=== PATIENT | female | born 1970 | race Caucasian/White ===

== ENCOUNTER 2017-06-05 09:51 | Emergency (ER) | payer OTHER, SELFPAY ==
[2017-06-05 10:06] VITALS: O2SAT 97
--- NOTE | 2017-06-05 10:26 | ERPHSYRPT ---
- History of Present Illness Time Seen by Provider: 06/05/17 10:10 Source: patient Exam Limitations: clinical condition Patient Subjective Stated Complaint: pt here for middle back pain for 2 days now , no injury. cough last 2 days, no fever Triage Nursing Assessment: pt alert, resp easy, skin w/d. walked in, no injury noted, tender to touch Physician History: PATIENT WITH HISTORY OF CHRONIC NECK AND LOW BACK PAIN FOR YEARS. HAS ONSET OF MID BACK PAIN X 2 DAYS ASSOCIATED WITH A PRODUCTIVE COUGH. DENIES FEVER, CHILLS OR DYSPNEA. Timing/Duration: day(s) Method of Injury: unknown Quality: throbbing Back Pain Location: T-spine Severity of Pain-Max: moderate Severity of Pain-Current: moderate Associated Symptoms: denies symptoms Previous symptoms: no prior history (HISTORY OR CHROINC NECK AND LOW BACK PAIN) Allergies/Adverse Reactions: hydrocodone bitartrate [From Vicodin] Allergy (Verified 06/05/17 10:06) Home Medications: No Home Meds 1 ea UD 03/03/15 [History] Hx Tetanus, Diphtheria Vaccination/Date Given: No Hx Influenza Vaccination/Date Given: No Hx Pneumococcal Vaccination/Date Given: No Immunizations Up to Date: Yes - Review of Systems Constitutional: No Symptoms, No Fever, No Chills Eyes: No Symptoms Ears, Nose, & Throat: No Symptoms Respiratory: Cough, No Dyspnea Cardiac: No Symptoms, No Chest Pain, No Edema, No Syncope Abdominal/Gastrointestinal: No Symptoms, No Abdominal Pain, No Nausea, No Vomiting, No Diarrhea Genitourinary Symptoms: No Symptoms, No Dysuria Musculoskeletal: Back Pain, No Neck Pain Skin: No Rash Neurological: No Dizziness, No Focal Weakness, No Sensory Changes Psychological: No Symptoms Endocrine: No Symptoms All Other Systems: Reviewed and Negative - Past Medical History Pertinent Past Medical History: Yes Cardiac History: Other Other Medical History: mitral valve proplapse - Past Surgical History Past Surgical History: Yes Female Surgical History: Hysterectomy, Tubal Ligation Other Surgical History: tonsils - Social History Smoking Status: Never smoker Exposure to second hand smoke: Yes Drug Use: none Patient Lives Alone: No - Female History Hx Last Menstrual Period: hyster - Nursing Vital Signs Nursing Vital Signs: Initial Vital Signs Temperature 97.9 F Temperature Source Oral Pulse Rate 83 Respiratory Rate 16 Blood Pressure [Right Arm] 131/83 Pain Intensity [Back] 5 Pain Intensity 8 - Physical Exam General Appearance: no apparent distress, alert Eye Exam: PERRL/EOMI, eyes nml inspection Ears, Nose, Throat Exam: normal ENT inspection Neck Exam: normal inspection, non-tender, supple, full range of motion, No meningismus, No midline tenderness Respiratory Exam: normal breath sounds, lungs clear, other (NO WHEEZES), No respiratory distress Cardiovascular Exam: regular rate/rhythm, normal heart sounds Gastrointestinal Exam: soft, normal bowel sounds, other (OBESE), No tenderness, No mass Back Exam: normal inspection, vertebral tenderness (THERE IS MINIMAL THORACIC PARASPINAL TENDERNESS T4 TO T8, NO CVA TENDERNESS), decreased range of motion Extremity Exam: normal inspection, normal range of motion, No calf tenderness, No pedal edema Peripheral Pulses: carotid (R): 2+, carotid (L): 2+, femoral (R): 2+, femoral (L ): 2+, dorsalis-pedis (R): 2+, dorsalis-pedis (L): 2+ Neurologic Exam: alert, oriented x 3, cooperative, 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, normal mood/affect, nml station & gait, sensation nml, No motor deficits Skin Exam: normal color, warm, dry, No rash SpO2 Interpretation: normal SpO2: 97 Oxygen Delivery: Room Air - Radiology Exams Chest X-ray Interpretation: Discussed w/ radiologist, Negative, No Infiltrates T-Spine X-ray Interpretation: No Fracture, No Subluxation Ordered Tests: Active Orders 24 hr Category Date Time Status Clean Catch Urine Specimen STAT Care 06/05/17 10:19 Active CHEST 2 VIEWS (PA AND LAT) Stat Exams 06/05/17 10:18 Completed THORACIC SPINE (AP,LAT,SWIMM) Stat Exams 06/05/17 10:19 Completed UA Stat Lab 06/05/17 10:19 Uncollected - Progress Progress: pain not gone completely Progress Note: 06/05/17 11:10 APPEARS IN NO DISTRESS, SITTING IN ROOM LAUGHING WHILE TEXTING Counseled pt/family regarding: lab results, diagnosis, need for follow-up - Departure Time of Disposition: 11:12 Departure Disposition: Home Clinical Impression: MID BACK PAIN, ACUTE BRONCHITIS Condition: Stable Critical Care Time: No Referrals: LEONELA BUSTOS [Primary Care Provider] - Additional Instructions: CONTINUE NAPROSYN FOR PAIN. NORFLEX 100MG TWICE DAILY FOR MUSCLE SPASM. ANTIBIOTIC ZITHROMAX 250MG, 2 TABLETS DAY 1 THE 1 TABLET DAILY FOR 4 DAYS. CONSULT YOUR FAMILY PHYSICIAN FOR EVALUATION AND TREATMENT. Prescriptions: Azithromycin 250 mg [Zithromax 250 MG TABLET] 250 mg PO DAILY #0 tablet Orphenadrine Citrate 100 mg [Norflex 100 MG Tablet] 100 mg PO BID #10 tab
--- NOTE | 2017-06-05 10:49 | XRAY ---
Indication: Back pain. Comparison: None Frontal/lateral thoracic spine demonstrates 11 rib-bearing thoracic segments with hypoplastic T12 ribs in normal alignment with disc spaces maintained. No bony, articular, or soft tissue abnormalities.
--- NOTE | 2017-06-05 10:54 | XRAY ---
Indication: Cough and vomiting. Back pain. Comparison: March 03, 2015. PA/lateral chest again demonstrates normal heart, lungs, and bony thorax.
[2017-06-05 11:20] VITALS: BP 142/90; PULSE 70
== END 2017-06-05 11:28 | disposition home or self-care (01) ==
LOC: ED 09:51
DX: M54.9 Dorsalgia, unspecified (principal); J20.9 Acute bronchitis, unspecified; R05 Cough; M54.5 Low back pain; M54.6 Pain in thoracic spine
CPT/HCPCS: 71020; 72072; 99284

== ENCOUNTER 2019-05-31 11:23 | Emergency (ER) | payer MEDICAID, OTHER ==
[2019-05-31 11:42] VITALS: BP 143/80; PULSE 74; O2SAT 98
--- NOTE | 2019-05-31 11:55 | ERPHSYRPT ---
- History of Present Illness Time Seen by Provider: 05/31/19 11:45 Source: patient Exam Limitations: no limitations Patient Subjective Stated Complaint: presented to ER with pain in Ribs and some in back, having for 2 days Triage Nursing Assessment: patient presented to ER lin to ambulate by self, gait is steady, pupilsp errla3, lung sounds clear bialteral, bowel sounds present x4, skin warm dry and intact. Physician History: 49-year-old white female arrives with complaint of pain in her upper back and posterior ribs symptoms since yesterday Denies cough or shortness of breath states pain is worse with breathing. No nausea no vomiting. Past medical history includes chronic neck and back pain, mitral valve prolapse. (Patient states seen for prolapse and is not sure she really had this) Past surgical history includes hysterectomy, tubal ligation, tonsillectomy, gallbladder Timing/Duration: yesterday Severity: moderate Modifying Factors: Improves With: other (worse with breathing) Associated Symptoms: No nausea, No vomiting, No abdominal pain, No shortness of breath, No heartburn, No diaphoresis, No cough, No chills, No chest pain, No fever, No headaches, No loss of appetite, No malaise, No rash, No syncope, No seizure, No weakness Allergies/Adverse Reactions: hydrocodone bitartrate [From Vicodin] Allergy (Verified 06/05/17 10:06) Home Medications: No Home Meds [No Home Meds] 1 [facility] UD 03/03/15 [History] Hx Tetanus, Diphtheria Vaccination/Date Given: Yes Hx Influenza Vaccination/Date Given: No Hx Pneumococcal Vaccination/Date Given: No Immunizations Up to Date: Yes - Review of Systems Constitutional: No Fever, No Chills Eyes: No Symptoms Ears, Nose, & Throat: No Symptoms Cardiac: Other (pain with breathing in upper back) Abdominal/Gastrointestinal: No Abdominal Pain, No Nausea, No Vomiting, No Diarrhea Genitourinary Symptoms: No Dysuria Musculoskeletal: Back Pain (pain upper back with breathing), No Neck Pain Skin: No Rash Neurological: No Dizziness, No Focal Weakness, No Sensory Changes Psychological: No Symptoms Endocrine: No Symptoms All Other Systems: Reviewed and Negative - Past Medical History Pertinent Past Medical History: Yes Neurological History: No Pertinent History Cardiac History: Other Respiratory History: Bronchitis Endocrine Medical History: No Pertinent History Musculoskeletal History: Arthritis, Fibromyalgia, Fractures Other Medical History: mitral valve proplapse - Past Surgical History Past Surgical History: Yes Female Surgical History: Hysterectomy, Tubal Ligation Other Surgical History: tonsils - Social History Smoking Status: Never smoker Exposure to second hand smoke: Yes Drug Use: none Patient Lives Alone: No - Female History Hx Now: No - Nursing Vital Signs Nursing Vital Signs: Initial Vital Signs Pulse Rate 74 05/31/19 11:24 Respiratory Rate 16 05/31/19 11:24 Blood Pressure 143/80 05/31/19 11:24 O2 Sat by Pulse Oximetry 98 05/31/19 11:24 Pain Scale Pain Intensity 8 - Physical Exam General Appearance: no apparent distress, alert Eye Exam: PERRL/EOMI, eyes nml inspection Ears, Nose, Throat Exam: normal ENT inspection, TMs normal, pharynx normal, moist mucous membranes Neck Exam: normal inspection, non-tender, supple, full range of motion Respiratory Exam: rhonchi (occasional rhonchi) Cardiovascular Exam: regular rate/rhythm, normal heart sounds, normal peripheral pulses Gastrointestinal/Abdomen Exam: soft, normal bowel sounds, No tenderness, No mass Back Exam: other (pain in upper back with breathing) Extremity Exam: normal inspection, normal range of motion, pelvis stable Neurologic Exam: alert, oriented x 3, 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 No acute cardiopulmonary disease seen. No pneumothorax is identified.. The findings are unchanged from June 05, 2017) - CT Exams Chest CT Interpretation: Discussed w/radiologist (CT chest with contrast: Impression 1. No CT evidence of pulmonary embolism, thoracic aortic aneurysm, or thoracic aortic dissection. 2. No other acute cardiopulmonary disease is seen) Ordered Tests: Active Orders 24 hr Category Date Time Status Seasonal Clerk STAT Care 05/31/19 11:51 Active EKG-ER Only STAT Care 05/31/19 11:50 Active Pulse Oximetry (ED) STAT Care 05/31/19 11:50 Active CHEST 1 VIEW (PORTABLE) Stat Exams 05/31/19 11:51 Completed CHEST WITH CONTRAST [CT] Stat Exams 05/31/19 12:25 Completed CBC W DIFF Stat Lab 05/31/19 12:02 Completed CMP Stat Lab 05/31/19 12:02 Completed D-DIMER QUANTITATION Stat Lab 05/31/19 12:02 Completed TROPONIN Q3H Lab 05/31/19 12:02 Completed TROPONIN Q3H Lab 05/31/19 15:00 Ordered TROPONIN Q3H Lab 05/31/19 18:00 Ordered TROPONIN Q3H Lab 05/31/19 21:00 Ordered TROPONIN Q3H Lab 06/01/19 00:00 Ordered UA W/RFX UR CULTURE Stat Lab 05/31/19 13:00 Completed Lab/Rad Data: Laboratory Result Diagrams 05/31/19 12:02 05/31/19 12:02 Laboratory Results 05/31/19 05/31/19 05/31/19 Range/Units 13:00 12:02 12:02 WBC (4.0-10.5) K/mm3 RBC (4.1-5.4) M/mm3 Hgb (12.0-16.0) gm/dl Hct (35-47) % MCV (78-100) fl MCH (26-32) pg MCHC (32-36) g/dl RDW (11.5-14.0) % Plt Count (150-450) K/mm3 MPV (6-9.5) fl Gran % (36.0-66.0) % Eos # (Auto) (0-0.5) Absolute Lymphs (auto) (1.0-4.6) Absolute Monos (auto) (0.0-1.3) Lymphocytes % (24.0-44.0) % Monocytes % (0.0-12.0) % Eosinophils % (0.00-5.0) % Basophils % (0.0-0.4) % Absolute Granulocytes (1.4-6.9) Basophils # (0-0.4) D-Dimer 695 H* (215-500) ng/mL Sodium (137-145) mmol/L Potassium (3.5-5.1) mmol/L Chloride (98-107) mmol/L Carbon Dioxide (22-30) mmol/L Anion Gap (5-15) MEQ/L BUN (7-17) mg/dL Creatinine (0.52-1.04) mg/dL Estimated GFR ML/MIN Glucose (74-106) mg/dL Calcium (8.4-10.2) mg/dL Total Bilirubin (0.2-1.3) mg/dL AST (14-36) U/L ALT (0-35) U/L Alkaline Phosphatase (38-126) U/L Troponin I < 0.012 (0.000-0.034) ng/mL Serum Total Protein (6.3-8.2) g/dL Albumin (3.5-5.0) g/dL Urine Color YELLOW (YELLOW) Urine Appearance SLIGHTLY CLOUDY (CLEAR) Urine pH 6.0 (5-6) Ur Specific [place] 1.009 (1.005-1.025) Urine Protein NEGATIVE (Negative) Urine Ketones NEGATIVE (NEGATIVE) Urine Blood SMALL (0-5) Terence/ul Urine Nitrite NEGATIVE (NEGATIVE) Urine Bilirubin NEGATIVE (NEGATIVE) Urine Urobilinogen NEGATIVE (0-1) mg/dL Ur Leukocyte Esterase NEGATIVE (NEGATIVE) Urine WBC (Auto) 0-2 (0-5) /HPF Urine RBC (Auto) NONE (0-2) /HPF U Epithel Cells (Auto) FEW (FEW) /HPF Urine Bacteria (Auto) NONE (NEGATIVE) /HPF Urine Mucus (Auto) SLIGHT (NEGATIVE) /HPF Urine Culture Reflexed NO (NO) Urine Glucose NEGATIVE (NEGATIVE) mg/dL 05/31/19 05/31/19 Range/Units 12:02 12:02 WBC 8.0 (4.0-10.5) K/mm3 RBC 4.63 (4.1-5.4) M/mm3 Hgb 14.4 (12.0-16.0) gm/dl Hct 42.9 (35-47) % MCV 92.7 (78-100) fl MCH 31.1 (26-32) pg MCHC 33.6 (32-36) g/dl RDW 13.0 (11.5-14.0) % Plt Count 277 (150-450) K/mm3 MPV 10.2 H (6-9.5) fl Gran % 63.0 (36.0-66.0) % Eos # (Auto) 0.17 (0-0.5) Absolute Lymphs (auto) 2.15 (1.0-4.6) Absolute Monos (auto) 0.61 (0.0-1.3) Lymphocytes % 26.9 (24.0-44.0) % Monocytes % 7.6 (0.0-12.0) % Eosinophils % 2.1 (0.00-5.0) % Basophils % 0.4 (0.0-0.4) % Absolute Granulocytes 5.03 (1.4-6.9) Basophils # 0.03 (0-0.4) D-Dimer (215-500) ng/mL Sodium 139 (137-145) mmol/L Potassium 3.5 (3.5-5.1) mmol/L Chloride 102 (98-107) mmol/L Carbon Dioxide 27 (22-30) mmol/L Anion Gap 14.0 (5-15) MEQ/L BUN 8 (7-17) mg/dL Creatinine 0.54 (0.52-1.04) mg/dL Estimated GFR > 60.0 ML/MIN Glucose 89 (74-106) mg/dL Calcium 9.5 (8.4-10.2) mg/dL Total Bilirubin 0.50 (0.2-1.3) mg/dL AST 15 (14-36) U/L ALT 12 (0-35) U/L Alkaline Phosphatase 55 (38-126) U/L Troponin I (0.000-0.034) ng/mL Serum Total Protein 7.5 (6.3-8.2) g/dL Albumin 4.3 (3.5-5.0) g/dL Urine Color (YELLOW) Urine Appearance (CLEAR) Urine pH (5-6) Ur Specific [place] (1.005-1.025) Urine Protein (Negative) Urine Ketones (NEGATIVE) Urine Blood (0-5) Terence/ul Urine Nitrite (NEGATIVE) Urine Bilirubin (NEGATIVE) Urine Urobilinogen (0-1) mg/dL Ur Leukocyte Esterase (NEGATIVE) Urine WBC (Auto) (0-5) /HPF Urine RBC (Auto) (0-2) /HPF U Epithel Cells (Auto) (FEW) /HPF Urine Bacteria (Auto) (NEGATIVE) /HPF Urine Mucus (Auto) (NEGATIVE) /HPF Urine Culture Reflexed (NO) Urine Glucose (NEGATIVE) mg/dL - Progress Progress: improved Progress Note: 05/31/19 12:25 49-year-old white female arrives with complaint of pain in her upper back worse with breathing symptoms since yesterday. Patient was normal EKG. Unfortunately patient with increased d-dimer. Will obtain CT a chest to rule out PE. 05/31/19 13:04 Patient offered Toradol for pain declined at this time. 05/31/19 14:01 Patient's CTA chest negative pulmonary embolism no acute cardiopulmonary abnormalities. Will go ahead and discharge patient - Departure Departure Disposition: Home Clinical Impression: Pleurisy Thoracic back pain Qualifiers: Chronicity: acute Back pain laterality: bilateral Qualified Code(s): M54.6 - Pain in thoracic spine Condition: Fair Critical Care Time: No Referrals: DOCTOR,NO FAMILY [Primary Care Provider] - Additional Instructions: Return home rest. Plenty of fluids. Advil every 6 hours as needed for pain. Tylenol 3 every 6 hours as needed for pain. Followup with your family Dr. if symptoms worse, no better in 48 hours or persist longer than 72 hours. Return for acute distress or for severe symptoms or for any problems. Prescriptions: Codeine Phosphate/APAP #3 [Tylenol #3 Tablet] 1 tab PO Q4-6HPRN PRN #12 tablet MDD 6 tablets PRN Reason: Pain
[2019-05-31 12:05] LABS: BASOPHIL % 0.4 % (0.0-0.4); Basophil (Absolute #) 0.03 (0-0.4); Eosinophil % 2.1 % (0.00-5.0); Eosinophil (Absolute #) 0.17 (0-0.5); Granulocyte Absolute (ANC) 5.03 (1.4-6.9); Hematocrit 42.9 % (35-47); Hemoglobin 14.4 gm/dl (12.0-16.0); Lymphocyte (Absolute #) 2.15 (1.0-4.6); Lymphocytes % 26.9 % (24.0-44.0); Mean Cell Volume 92.7 fl (78-100); Mean Corpuscular Hemoglobin 31.1 pg (26-32); Mean Corpuscular Hgb Concent. 33.6 g/dl (32-36); Mean Platelet Volume 10.2 fl (6-9.5); Monocyte (Absolute #) 0.61 (0.0-1.3); Monocytes % 7.6 % (0.0-12.0); Platelet Count 277 K/mm3 (150-450); Red Blood Count 4.63 M/mm3 (4.1-5.4)
[2019-05-31 12:17] LABS: ALBUMIN 4.3 g/dL (3.5-5.0); ALKALINE PHOSPHATASE 55 U/L (38-126); BLOOD UREA NITROGEN 8 mg/dL (7-17); CHLORIDE 102 mmol/L (98-107); Calcium 9.5 mg/dL (8.4-10.2); Carbon Dioxide 27 mmol/L (22-30); Creatinine 1 0.54 mg/dL (0.52-1.04); Glucose 89 mg/dL (74-106); Potassium 3.5 mmol/L (3.5-5.1); SGOT/AST 15 U/L (14-36); SGPT/ALT 12 U/L (0-35); SODIUM 139 mmol/L (137-145); Total Protein 7.5 g/dL (6.3-8.2)
--- NOTE | 2019-05-31 12:31 | XRAY ---
Exam: AP upright portable chest film from 05/31/2019. Comparison: Two-view chest from 06/05/2017. Indication: 49-year-old female with pain in upper back, worse with movements. Findings: The heart size and contour are normal. The marzena and mediastinal structures appear unremarkable. A thin metallic necklace encircles the base of the patient's neck. I believe there is a small calcified granuloma within the lateral left lower lung field representing no change in retrospect. No air space infiltrates, vascular congestion, pneumothorax, or pleural fluid is seen. No acute osseous process is seen. I believe there are some surgical clips within the right upper quadrant of the abdomen. Impression: 1. No acute cardiopulmonary disease is seen. No pneumothorax is identified. The findings are unchanged from 06/05/2017.
[2019-05-31 13:17] LABS: Appearance SLIGHTLY CLOUDY (CLEAR); Bilirubin NEGATIVE (NEGATIVE); Blood SMALL Ery/ul (0-5); Epithelial Cells FEW /HPF (FEW); Glucose NEGATIVE (NEGATIVE); Ketones NEGATIVE (NEGATIVE); Leukocyte Esterase NEGATIVE (NEGATIVE); Mucus SLIGHT /HPF (NEGATIVE); Nitrite NEGATIVE (NEGATIVE); Protein,Urine Dip NEGATIVE (Negative); Specific Gravity 1.009 (1.005-1.025); Urobilinogen NEGATIVE mg/dL (0-1); WBC 0-2 /HPF (0-5)
--- NOTE | 2019-05-31 13:59 | XRAY ---
Exam: CT of the chest with IV contrast per PE protocol from 05/31/2019. CTDI: 15.35 Comparison: AP upright portable chest film from 05/31/2019. Indication: 49-year-old female with upper back pain and elevated d-dimer. Technique: Post-IV contrast axial images were obtained through the chest using the PE protocol and employing 80 ML's of Isovue 370 contrast material. Reconstructed coronal and sagittal images were created and reviewed. Findings: The pulmonary arteries are well opacified revealing no filling defects to suggest clot/emboli. The thoracic aorta appears of normal diameter revealing no evidence of aneurysm or dissection. The heart size is normal revealing no evidence of pericardial effusion. No abnormal mediastinal or perihilar lymphadenopathy is seen. The thyroid gland is partially included on this exam. Some scattered small lymph nodes are seen within the axilla which are likely reactive or postinflammatory. The central airways appear open. I see no air space infiltrates or significant atelectasis. A small calcified granuloma is seen within the inferior portion of the left upper lobe. This is seen on the plain chest film as well. I see no evidence of interstitial lung disease or suspicious soft tissue lung nodules. No pneumothorax or pleural effusion is seen. Minimal posterior pleural thickening is seen at both lung bases, nonspecific. The bones reveal no acute fracture or aggressive bone lesion. Surgical clips consistent with prior cholecystectomy are seen within the right upper quadrant. The visualized upper abdomen appears unremarkable. Impression: 1. I see no CT evidence of pulmonary embolism, thoracic aortic aneurysm, or thoracic aortic dissection. 2. No other acute cardiopulmonary disease is seen.
== END 2019-05-31 14:26 | disposition home or self-care (01) ==
LOC: ED 11:23
DX: R09.1 Pleurisy (principal); M54.6 Pain in thoracic spine
CPT/HCPCS: 36415; 71045; 71260; 80053; 81001; 84484; 85025; 85379; 93005; 93041; 94760; 99284

== ENCOUNTER 2020-10-06 06:36 | Day surgery (SDC) | payer OTHER ==
[2020-10-06] MEDS ORDERED: Valium 5 MG PO ONE (07:14)
[2020-10-06] MEDS ORDERED: CEFAZOLIN 2 GM-D5W BAG** 2 GM/50 ML ML IV SCH (07:30)
[2020-10-06] MEDS ORDERED: Lactated Ringers 1,000 ML IV SCH (07:30)
[2020-10-06] MEDS ORDERED: BUPIVACAINE 0.5% VIAL IJ ONE (08:15)
[2020-10-06] MEDS ORDERED: Lactated Ringers 1,000 ML IV ONE (08:15)
[2020-10-06] MEDS ORDERED: XYLOCAINE 1% HCL 20 ML MDV ONE (08:15)
[2020-10-06] MEDS ORDERED: DIPRIVAN 200 MG/20 ML IV ONE ×2 (08:44→09:23)
[2020-10-06] MEDS ORDERED: SUBLIMAZE 100 MCG/2 ML ONE ×2 (08:44→09:11)
[2020-10-06] MEDS ORDERED: Ketamine HCl 50 MG/ML ONE (08:45)
[2020-10-06] MEDS ORDERED: Versed 2 MG/2 ML Injection ONE (08:45)
--- NOTE | 2020-10-06 10:06 | XRAY ---
Indication: CHEILECTOMY OF RIGHT FOOT. Intraoperative fluoroscopy was provided for 4 seconds with 2 lateral digital spot images of the right foot obtained. Correlate with intraoperative findings/report.
[2020-10-06 11:10] VITALS: O2SAT 99
[2020-10-06 11:17] VITALS: BP 150/80; PULSE 60
--- NOTE | 2020-10-06 12:09 | XRAY ---
4 seconds of fluoroscopy was used in surgery for a right cheilectomy.
--- NOTE | 2020-10-10 08:11 | OP ---
SURGERY DATE: 10/06/2020 0858 INDICATION FOR SURGERY: The patient has a history of first metaphalangeal joint pain with inflammation and limited range of motion with ambulation. The patient approximately has about 10 degrees dorsiflexion that was noted to the joint clinically and plantar flexion was approximately 30 degrees. The patient had MRI performed which showed some osteochondral defect to the plantar aspect of the metatarsal head cartilage which he was informed could progress over time. However, she is interested in keeping her range of motion even if it is at the expense for some pain in order to wear high heels. 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 She understands all risks, complications and benefits of the surgical procedure and wished to proceed at that time. She possibly may need a fusion in the future and she understands this. PREOPERATIVE DIAGNOSIS: Hallux limitus with osteochondral defect right foot. POSTOPERATIVE DIAGNOSIS: Hallux limitus with osteochondral defect right foot. PROCEDURE: Cheilectomy of right first metaphalangeal joint with synovectomy and osteochondral drilling. SURGEON: Riky Glass DPM. LUMBER BEARER: None. ANESTHESIA: MAC plus local. ANTIBIOTICS: 2 gm Ancef preoperatively. HEMOSTASIS: Right ankle tourniquet set to 250 mm of Mercury for 42 minutes. ESTIMATED BLOOD LOSS: Less than 5 cc. MATERIALS: 3-0 Monocryl, 2-0 Vicryl and 3-0 Nylon. INJECTABLES: Preoperative injection of a 1:1 mixture of 1% lidocaine plain and 0.5% Marcaine plain in a Lewis block-type fashion. PATHOLOGY: None. MICROBIOLOGY: None. COMPLICATIONS: None. DESCRIPTION OF PROCEDURE AND FINDINGS: Following satisfactory preoperative evaluation by the anesthesia team, the patient was brought into the OR and placed on the OP table in the supine position. MAC sedation was administered at this time and a well-padded ankle tourniquet was applied to the right ankle and the tourniquet was set to 250 mm of Mercury. At this time the right foot was prepped and draped in the typical sterile fashion and the operative extremity was Esmarched. Tourniquet was inflated and dropped onto the operative field. At this time attention was directed to the right dorsal medial first metaphalangeal joint where approximately a 5 cm incision was made being careful not to damage any neurovascular structures in the way. At this time the dissection was continued with sharp dissection making sure not to lacerate the extensor tendon, extensor longus or the extensor brevis which were retracted out of the surgical field. At this time the 15 blade was then utilized to make an incision at the dorsal aspect of the capsule while having the hallux dorsiflexed so as not to damage the cartilage at the dorsal aspect of the first metaphalangeal joint this was continued to the mid-shaft of the proximal phalanx. Once a J-stroke was performed on the medial and lateral aspect of the joint surface, the hallux was then plantar flexed maximally in order to make exposure of the distal aspect of the metaphalangeal joint. At this time it was noted that a majority of the cartilage at the lateral aspect of the first metaphalangeal joint was missing with a central defect. At this time synovectomy was performed of the joint and this was irrigated. At this time attention was then directed to the dorsal aspect of the prominence at the first metaphalangeal joint where approximately 20% of the dorsal metatarsal head with its remaining cartilage was removed and the range of motion was then tested deeming to be approximately 45 degrees of increased dorsiflexion this is an improvement of approximately 35 degrees from the 10 degrees she was obtaining before. At this time the extensor tendon was inspected for any damage due to prolonged scar tissue in this area which was deemed to be adequate and no repair was necessitated. At this time a K-wire was utilized to microfracture the osteochondral defect centrally and the lateral portion of the first metatarsal head in order to stimulate fibrocartilaginous growth. At this time the incision site was inspected for any remaining defects which none were found. The capsule was then coapted utilizing a 3-0 Monocryl in a running-type fashion. At this time the skin was coapted utilizing a 2-0 Vicryl subcutaneously as well as a 3-0 Nylon in a horizontal mattress-type fashion in order to yared the skin edges. A dressing consisting of Betadine, Adaptic, 4x4, Kerlix, NATALIYA as well as a postoperative surgical shoe was applied intraoperatively. The patient was reversed from anesthesia and returned to the postoperative anesthesia care unit with vital signs stable and vascular status intact. The patient handled the anesthesia as well as the procedure without any serious complications. Postoperative orders as follows: 1) Keep postoperative dressing clean, dry and intact. Do not take the postoperative dressing down for any reason without consulting Dr. Riky blanco. 2) Elevate operative extremity to the level of the heart to reduce inflammation and pain. 3) Ice behind knee to reduce inflammation. 4) Full weight bearing in postoperative shoe to the right extremity. 5) Postoperative pain control with Ultram 50 mg every four or six hours for breakthrough pain, alternate with ibuprofen 600 mg every six hours. 6) Postoperative infection prophylaxis Keflex 500 mg every six hours for ten days. 7) Postoperative deep venous thrombosis clot prevention aspirin 325 mg p.o. daily until full weight bearing status in a surgical shoe or in a regular shoe. 8) Follow up in clinic within one week of the procedure. 9) Discharge the patient to home.
== END 2020-10-06 11:25 | disposition home or self-care (01) ==
LOC: SDC 06:36
PROVIDERS: ATTEND Podiatrist Foot & Ankle Surgery
DX: M20.5X1 Other deformities of toe(s) (acquired), right foot (principal); M21.6X1 Other acquired deformities of right foot
CPT/HCPCS: 28072; 28288; 73620; 76000; J0690; J2250; J2704; J3010; A9270-GY

== ENCOUNTER 2021-03-18 10:47 | Emergency (ER) | payer OTHER ==
[2021-03-18] MEDS ORDERED: Sodium Chloride 0.9% 1000 ML 1,000 ML IV STA (10:52)
--- NOTE | 2021-03-18 10:52 | ERPHSYRPT ---
- History of Present Illness Time Seen by Provider: 03/18/21 10:51 Historian: patient Exam Limitations: no limitations Physician History: Is a 50-year-old female who presents with a complaint of chest pain. She admits to drinking heavily last night and awakening this morning with nausea and vomiting which has persisted. She has no cardiac history per se she says there is been no sweating or shortness of breath she did have gestational diabetes she does have a family history this positive but no hypertension no smoking no known hyperlipidemia Timing/Duration: today Activities at Onset: other (etoh intake) Quality: pressure, stabbing Location: substernal Chest Pain Radiation: arm (Left), back (Left upper back) Severity of Pain-Max: moderate Severity of Pain-Current: moderate Modifying Factors: Improves With: nothing Associated Symptoms: nausea, vomiting, No shortness of breath Prior Chest Pain/Cardiac Workup: no prior chest pain Nitro Today/Relief: no nitro taken today Aspirin Treatment Today: no aspirin today Allergies/Adverse Reactions: morphine Allergy (Severe, Verified 03/18/21 10:54) hydrocodone bitartrate [From Vicodin] Allergy (Verified 03/18/21 10:54) Hx Tetanus, Diphtheria Vaccination/Date Given: Yes Hx Influenza Vaccination/Date Given: No Hx Pneumococcal Vaccination/Date Given: No - Review of Systems Constitutional: No Fever, No Chills, No Night Sweats Eyes: No Symptoms Ears, Nose, & Throat: No Symptoms Respiratory: No Cough, No Dyspnea Cardiac: Chest Pain, No Edema, No Syncope Abdominal/Gastrointestinal: Nausea, Vomiting, No Diarrhea Genitourinary Symptoms: No Symptoms, No Dysuria Musculoskeletal: Back Pain, No Neck Pain Skin: No Symptoms, No Rash Neurological: No Symptoms, No Dizziness, No Focal Weakness, No Sensory Changes Psychological: No Symptoms Endocrine: No Symptoms Hematologic/Lymphatic: No Symptoms Immunological/Allergic: No Symptoms All Other Systems: Reviewed and Negative - Past Medical History Pertinent Past Medical History: Yes Neurological History: No Pertinent History ENT History: No Pertinent History Cardiac History: No Pertinent History Respiratory History: No Pertinent History Endocrine Medical History: No Pertinent History Musculoskeletal History: Fibromyalgia GI Medical History: No Pertinent History History: No Pertinent History Psycho-Social History: No Pertinent History Female Reproductive Disorders: No Pertinent History Other Medical History: "Borderline thyroid", was on thyroid medication for 60 days and felt worse, no longer taking. Mitral valve prolapse. - Past Surgical History Past Surgical History: Yes Neuro Surgical History: No Pertinent History Cardiac: No Pertinent History Respiratory: No Pertinent History Gastrointestinal: No Pertinent History Genitourinary: No Pertinent History Musculoskeletal: No Pertinent History Female Surgical History: Hysterectomy, Tubal Ligation Other Surgical History: tonsils - Social History Smoking Status: Never smoker Exposure to second hand smoke: Yes Drug Use: none Patient Lives Alone: No - Nursing Vital Signs Nursing Vital Signs: Initial Vital Signs Temperature 97.7 F 03/18/21 10:55 Pulse Rate 71 03/18/21 10:55 Respiratory Rate 18 03/18/21 10:55 Blood Pressure 131/88 03/18/21 10:55 O2 Sat by Pulse Oximetry 100 03/18/21 10:55 Pain Scale Pain Intensity 6 - Physical Exam General Appearance: moderate distress, alert Eye Exam: PERRL/EOMI, eyes nml inspection Ears, Nose, Throat Exam: normal ENT inspection, moist mucous membranes Neck Exam: normal inspection, non-tender, supple, full range of motion Respiratory Exam: normal breath sounds, lungs clear, No respiratory distress Cardiovascular Exam: regular rate/rhythm, normal heart sounds Gastrointestinal/Abdomen Exam: soft, No tenderness, No mass Back Exam: normal inspection, No CVA tenderness, No vertebral tenderness Extremity Exam: normal inspection, normal range of motion Neurologic Exam: alert, oriented x 3, cooperative, normal mood/affect, sensation nml, No motor deficits Skin Exam: normal color, warm, dry Lymphatic Exam: No adenopathy SpO2 Interpretation: normal O2 Delivery: Room Air - Course Nursing assessment & vital signs reviewed: Yes EKG Interpreted by Me: RATE (67), Sinus Rhythm, NORMAL AXIS, NORMAL INTERVALS, NORMAL QRS - Radiology Exams Chest X-ray Interpretation: Interpreted by me, Negative Ordered Tests: Active Orders 24 hr Category Date Time Status Reinsurance Accountant STAT Care 03/18/21 10:53 Active EKG-ER Only STAT Care 03/18/21 10:52 Active IV Insertion STAT Care 03/18/21 10:52 Active CHEST 1 VIEW (PORTABLE) Stat Exams 03/18/21 10:53 Taken AMYLASE Stat Lab 03/18/21 11:15 Completed CBC W DIFF Stat Lab 03/18/21 11:15 Completed CMP Stat Lab 03/18/21 11:15 Completed D-DIMER QUANTITATIVE Stat Lab 03/18/21 11:15 Completed ETHYL ALCOHOL Stat Lab 03/18/21 11:15 Completed LIPASE Stat Lab 03/18/21 11:15 Completed Lactic Acid Stat Lab 03/18/21 10:52 Completed MAGNESIUM Stat Lab 03/18/21 11:15 Completed NT PRO BNP Stat Lab 03/18/21 11:15 Completed PROTIME WITH INR Stat Lab 03/18/21 11:15 Completed TROPONIN Q3H Lab 03/18/21 11:15 Completed TROPONIN Q3H Lab 03/18/21 14:00 Ordered TROPONIN Q3H Lab 03/18/21 17:00 Ordered TROPONIN Q3H Lab 03/18/21 20:00 Ordered TROPONIN Q3H Lab 03/18/21 23:00 Ordered UA W/RFX UR CULTURE Stat Lab 03/18/21 10:53 Ordered Urine Triage Profile Stat Lab 03/18/21 10:53 Ordered Medication Summary Discontinued Medications Generic Name Dose Route Start Last Admin Trade Name Freq PRN Reason Stop Dose Admin Sodium Chloride 1,000 mls @ 999 mls/hr 03/18/21 10:52 03/18/21 12:12 Sodium Chloride 0.9% 1000 Ml IV 03/18/21 11:52 Infused .Q1H1M STA Infusion Sodium Chloride Confirm 03/18/21 11:04 Sodium Chloride 0.9% 1000 Ml Administered 03/18/21 11:05 Dose 1,000 mls @ ud .ROUTE .STK-MED ONE Lorazepam 1 mg 03/18/21 11:39 03/18/21 11:45 Ativan 2 Mg/1 Ml Vial IV 03/18/21 11:40 1 mg STAT ONE Administration Lorazepam Confirm 03/18/21 11:44 Ativan 2 Mg/1 Ml Vial Administered 03/18/21 11:45 Dose 2 mg .ROUTE .STK-MED ONE Ondansetron HCl 4 mg 03/18/21 10:55 03/18/21 11:07 Zofran 4 Mg/2 Ml Vial IV 03/18/21 10:56 4 mg STAT ONE Administration Ondansetron HCl Confirm 03/18/21 11:04 Zofran 4 Mg/2 Ml Vial Administered 03/18/21 11:05 Dose 4 mg .ROUTE .STK-MED ONE Lab/Rad Data: Laboratory Result Diagrams 03/18/21 11:15 03/18/21 11:15 Laboratory Results 03/18/21 03/18/21 03/18/21 Range/Units 11:15 11:15 11:15 WBC (4.0-10.5) K/mm3 RBC (4.1-5.4) M/mm3 Hgb (12.0-16.0) gm/dl Hct (35-47) % MCV (78-100) fl MCH (26-32) pg MCHC (32-36) g/dl RDW (11.5-14.0) % Plt Count (150-450) K/mm3 MPV (7.5-11.0) fl Gran % (36.0-66.0) % Eos # (Auto) (0-0.5) Absolute Lymphs (auto) (1.0-4.6) Absolute Monos (auto) (0.0-1.3) Lymphocytes % (24.0-44.0) % Monocytes % (0.0-12.0) % Eosinophils % (0.00-5.0) % Basophils % (0.0-0.4) % Absolute Granulocytes (1.4-6.9) Basophils # (0-0.4) PT 12.4 H (9.95-12.35) SECONDS INR 1.10 (0.8-3.0) D-Dimer 341 (215-500) ng/mL Sodium 140 (137-145) mmol/L Potassium 3.6 (3.5-5.1) mmol/L Chloride 102 (98-107) mmol/L Carbon Dioxide 30 (22-30) mmol/L Anion Gap 11.9 (5-15) MEQ/L BUN 7 (7-17) mg/dL Creatinine 0.54 (0.52-1.04) mg/dL Estimated GFR > 60.0 ML/MIN Glucose 98 (74-106) mg/dL Lactic Acid (0.4-2.0) Calcium 9.4 (8.4-10.2) mg/dL Magnesium 2.2 (1.6-2.3) mg/dL Total Bilirubin 0.40 (0.2-1.3) mg/dL AST 22 (14-36) U/L ALT 16 (0-35) U/L Alkaline Phosphatase 66 (38-126) U/L Troponin I < 0.012 (0.000-0.034) ng/mL NT-Pro-B Natriuret Pep 56.7 (0-900) pg/mL Serum Total Protein 8.0 (6.3-8.2) g/dL Albumin 4.8 (3.5-5.0) g/dL Amylase 52 (30-110) U/L Lipase 36 (23-300) U/L Ethyl Alcohol < 10 (0-10) mg/dL 03/18/21 03/18/21 Range/Units 11:15 10:52 WBC 8.7 (4.0-10.5) K/mm3 RBC 4.61 (4.1-5.4) M/mm3 Hgb 14.0 (12.0-16.0) gm/dl Hct 42.3 (35-47) % MCV 91.8 (78-100) fl MCH 30.4 (26-32) pg MCHC 33.1 (32-36) g/dl RDW 13.3 (11.5-14.0) % Plt Count 322 (150-450) K/mm3 MPV 10.0 (7.5-11.0) fl Gran % 70.4 H (36.0-66.0) % Eos # (Auto) 0.17 (0-0.5) Absolute Lymphs (auto) 1.85 (1.0-4.6) Absolute Monos (auto) 0.54 (0.0-1.3) Lymphocytes % 21.2 L (24.0-44.0) % Monocytes % 6.2 (0.0-12.0) % Eosinophils % 1.9 (0.00-5.0) % Basophils % 0.3 (0.0-0.4) % Absolute Granulocytes 6.14 (1.4-6.9) Basophils # 0.03 (0-0.4) PT (9.95-12.35) SECONDS INR (0.8-3.0) D-Dimer (215-500) ng/mL Sodium (137-145) mmol/L Potassium (3.5-5.1) mmol/L Chloride (98-107) mmol/L Carbon Dioxide (22-30) mmol/L Anion Gap (5-15) MEQ/L BUN (7-17) mg/dL Creatinine (0.52-1.04) mg/dL Estimated GFR ML/MIN Glucose (74-106) mg/dL Lactic Acid 1.1 (0.4-2.0) Calcium (8.4-10.2) mg/dL Magnesium (1.6-2.3) mg/dL Total Bilirubin (0.2-1.3) mg/dL AST (14-36) U/L ALT (0-35) U/L Alkaline Phosphatase (38-126) U/L Troponin I (0.000-0.034) ng/mL NT-Pro-B Natriuret Pep (0-900) pg/mL Serum Total Protein (6.3-8.2) g/dL Albumin (3.5-5.0) g/dL Amylase (30-110) U/L Lipase (23-300) U/L Ethyl Alcohol (0-10) mg/dL - Progress Progress: improved Blood Culture(s) Obtained: No Antibiotics given: No - Departure Departure Disposition: Home Clinical Impression: Chest pain Condition: Stable Critical Care Time: No Referrals: GARETT CORRIGAN DO [Primary Care Provider] - Instructions: Chest Pain (DC) Prescriptions: Ondansetron ODT 4 MG [Zofran Odt 4 mg] 4 mg PO Q6H PRN PRN #10 tab.rapdis PRN Reason: Vomiting PANTOPRAZOLE 40 mg Tablet [Protonix 40MG Tablet] 40 mg PO QAM 30 Days #30 tab
[2021-03-18] MEDS ORDERED: Zofran 4 MG/2 ML VIAL IV ONE (10:55)
[2021-03-18] MEDS ORDERED: Sodium Chloride 0.9% 1000 ML 1,000 ML ONE (11:04)
[2021-03-18] MEDS ORDERED: Zofran 4 MG/2 ML VIAL ONE (11:04)
[2021-03-18 11:29] LABS: Absolute Neutrophil Ct (ANC) 6.14 (1.4-6.9); BASOPHIL % 0.3 % (0.0-0.4); Basophil (Absolute #) 0.03 (0-0.4); Eosinophil % 1.9 % (0.00-5.0); Eosinophil (Absolute #) 0.17 (0-0.5); Hematocrit 42.3 % (35-47); Lymphocyte (Absolute #) 1.85 (1.0-4.6); Lymphocytes % 21.2 % (24.0-44.0); Mean Cell Volume 91.8 fl (78-100); Mean Corpuscular Hemoglobin 30.4 pg (26-32); Mean Corpuscular Hgb Concent. 33.1 g/dl (32-36); Monocyte (Absolute #) 0.54 (0.0-1.3); Monocytes % 6.2 % (0.0-12.0); Neutrophil % 70.4 % (36.0-66.0); Platelet Count 322 K/mm3 (150-450); Red Blood Count 4.61 M/mm3 (4.1-5.4); Red Cell Distribution Width 13.3 % (11.5-14.0); White Blood Count 8.7 K/mm3 (4.0-10.5)
[2021-03-18 11:30] LABS: INR 1.1 (0.8-3.0); PROTIME 12.4 SECONDS (9.95-12.35)
[2021-03-18] MEDS ORDERED: Ativan 2 MG/1 ML VIAL IV ONE (11:39)
[2021-03-18 11:42] LABS: ALBUMIN 4.8 g/dL (3.5-5.0); ALKALINE PHOSPHATASE 66 U/L (38-126); AMYLASE 52 U/L (30-110); ANION GAP 11.9 MEQ/L (5-15); BLOOD UREA NITROGEN 7 mg/dL (7-17); CHLORIDE 102 mmol/L (98-107); Calcium 9.4 mg/dL (8.4-10.2); Carbon Dioxide 30 mmol/L (22-30); Creatinine 1 0.54 mg/dL (0.52-1.04); EST GLOMERULAR FILTRATION RATE > 60.0 ML/MIN; ETHYL ALCOHOL < 10 mg/dL (0-10); Glucose 98 mg/dL (74-106); LIPASE 36 U/L (23-300); MAGNESIUM 2.2 mg/dL (1.6-2.3); NT PRO BNP 56.7 pg/mL (0-900); Potassium 3.6 mmol/L (3.5-5.1); SGOT/AST 22 U/L (14-36); SGPT/ALT 16 U/L (0-35); SODIUM 140 mmol/L (137-145)
[2021-03-18] MEDS ORDERED: Ativan 2 MG/1 ML VIAL ONE (11:44)
[2021-03-18 12:24] VITALS: BP 142/80; PULSE 72; O2SAT 95
--- NOTE | 2021-03-18 22:02 | XRAY ---
Indication: Chest pain and vomiting. Comparison: May 31, 2019. Portable chest again demonstrates normal heart, lungs, and bony thorax with incidental calcified granulomas.
== END 2021-03-18 12:33 | disposition home or self-care (01) ==
LOC: ED 10:47
DX: R07.9 Chest pain, unspecified (principal)
CPT/HCPCS: 36000; 36415; 71045; 80053; 82150; 83605; 83690; 83735; 83880; 84484; 85025; 85379; 85610; 93005; 93041; 96360; 96374; 96375; 99284; G0480; 80307; J2060; J2405

== ENCOUNTER 2021-06-10 12:14 | Emergency (ER) | payer OTHER ==
[2021-06-10] MEDS ORDERED: Zofran 4 MG/2 ML VIAL IV ONE (12:35)
--- NOTE | 2021-06-10 12:47 | ERPHSYRPT ---
- History of Present Illness Time Seen by Provider: 06/10/21 12:26 Historian: patient Exam Limitations: no limitations Patient Subjective Stated Complaint: RUQ abd pain Triage Nursing Assessment: pt to ED c/o RUQ pain that is intermittent and random with onset. rates 0/10 now, doubles her over when pain comes on. no noted aggravating or irritating factors. no urinary or new bowel problems, hx IBS. Physician History: 51 years old female with history of mitral valve prolapse, cholecystectomy presented in the ER with chief complaint of intermittent right upper quadrant/right lower chest wall pain since yesterday moderate to severe sharp nature, last for few minutes and improved without any associated palpitations or shortness of breath. Patient reports mildly nauseated because of pain earlier but no vomiting. Denies any constipation or diarrhea. No fever chills or cough reported. Timing/Duration: yesterday, intermittent, resolved prior to arrival, sudden, improved Activities at Onset: rest Quality: sharpness Abdominal Pain Onset Location: RUQ Pain Radiation: chest Severity of Pain-Max: severe Severity of Pain-Current: none Modifying Factors: Improves With: nothing Associated Symptoms: denies symptoms Previous symptoms: no prior history Allergies/Adverse Reactions: morphine Allergy (Severe, Verified 06/10/21 12:26) hydrocodone bitartrate [From Vicodin] Allergy (Verified 06/10/21 12:26) Home Medications: Metoprolol Tartrate 25 mg [Lopressor 25MG Tab] 25 mg PO DAILY 06/10/21 [History] Hx Tetanus, Diphtheria Vaccination/Date Given: No Hx Influenza Vaccination/Date Given: No Hx Pneumococcal Vaccination/Date Given: No Immunizations Up to Date: No Travel Risk - International Travel Have you traveled outside of the country in past 3 weeks: No - Coronavirus Screening Are you exhibiting any of the following symptoms?: No Close contact with a COVID-19 positive Pt in past 14-21 Days: No - Vaccine Status Have you recieved a Covid-19 vaccination: No - Review of Systems Constitutional: No Symptoms Eyes: No Symptoms Ears, Nose, & Throat: No Symptoms Respiratory: No Symptoms Abdominal/Gastrointestinal: Abdominal Pain, Nausea Genitourinary Symptoms: No Symptoms Musculoskeletal: No Symptoms Skin: No Symptoms Neurological: No Symptoms Psychological: Anxiety Endocrine: No Symptoms Hematologic/Lymphatic: No Symptoms - Past Medical History Pertinent Past Medical History: Yes Neurological History: No Pertinent History ENT History: No Pertinent History Cardiac History: Other Respiratory History: No Pertinent History Endocrine Medical History: No Pertinent History Musculoskeletal History: Fibromyalgia GI Medical History: No Pertinent History History: No Pertinent History Psycho-Social History: No Pertinent History Female Reproductive Disorders: No Pertinent History Other Medical History: Mitral valve prolapse. - Past Surgical History Past Surgical History: Yes Neuro Surgical History: No Pertinent History Cardiac: No Pertinent History Respiratory: No Pertinent History Gastrointestinal: Cholecystectomy Genitourinary: No Pertinent History Musculoskeletal: No Pertinent History, Orthopedic Surgery Female Surgical History: Hysterectomy, Tubal Ligation Other Surgical History: tonsils. R foot, big toe - Social History Smoking Status: Never smoker Exposure to second hand smoke: Yes Drug Use: none Patient Lives Alone: No - Female History Hx Now: No (hysterectomy) - Nursing Vital Signs Nursing Vital Signs: Initial Vital Signs Temperature 98.6 F 06/10/21 12:15 Pulse Rate 81 06/10/21 12:15 Respiratory Rate 16 06/10/21 12:15 Blood Pressure 122/76 06/10/21 12:15 O2 Sat by Pulse Oximetry 98 06/10/21 12:15 Pain Scale Pain Intensity 0 - Physical Exam General Appearance: no apparent distress, alert Eye Exam: PERRL/EOMI, eyes nml inspection Ears, Nose, Throat Exam: normal ENT inspection, pharynx normal Neck Exam: normal inspection, supple, full range of motion Respiratory Exam: normal breath sounds, chest tenderness (Minimal tenderness right lower anterior chest wall without crepitus bruising or swelling), lungs clear, No respiratory distress Cardiovascular Exam: regular rate/rhythm, normal heart sounds Gastrointestinal/Abdomen Exam: soft, normal bowel sounds, tenderness (Minimal tenderness epigastric/right upper quadrant), No guarding Back Exam: normal inspection, normal range of motion Extremity Exam: normal inspection, normal range of motion Neurologic Exam: alert, oriented x 3, cooperative, 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 II-XII nml as tested Skin Exam: normal color SpO2 Interpretation: normal SpO2: 98 O2 Delivery: Room Air Ordered Tests: Active Orders 24 hr Category Date Time Status EKG-ER Only STAT Care 06/10/21 12:35 Active IV Insertion STAT Care 06/10/21 12:35 Active NPO (ED) STAT Care 06/10/21 12:35 Active CHEST 2 VIEWS (PA AND LAT) Stat Exams 06/10/21 12:35 Taken CBC W DIFF Stat Lab 06/10/21 13:12 Completed CMP Stat Lab 06/10/21 13:12 Completed HCG,QUALITATIVE URINE Stat Lab 06/10/21 13:12 Completed LIPASE Stat Lab 06/10/21 13:12 Completed TROPONIN Q3H Lab 06/10/21 12:45 Completed TROPONIN Q3H Lab 06/10/21 15:45 Ordered TROPONIN Q3H Lab 06/10/21 18:45 Ordered TROPONIN Q3H Lab 06/10/21 21:45 Ordered TROPONIN Q3H Lab 06/11/21 00:45 Ordered UA W/RFX UR CULTURE Stat Lab 06/10/21 13:12 Completed Medication Summary Discontinued Medications Generic Name Dose Route Start Last Admin Trade Name Freq PRN Reason Stop Dose Admin Ondansetron HCl 4 mg 06/10/21 12:35 Zofran 4 Mg/2 Ml Vial IV 06/10/21 12:36 STAT ONE Lab/Rad Data: Laboratory Result Diagrams 06/10/21 13:12 06/10/21 13:12 Laboratory Results 06/10/21 06/10/21 06/10/21 Range/Units 13:12 13:12 13:12 WBC 8.7 (4.0-10.5) K/mm3 RBC 4.11 (4.1-5.4) M/mm3 Hgb 12.3 (12.0-16.0) gm/dl Hct 38.3 (35-47) % MCV 93.2 (78-100) fl MCH 29.9 (26-32) pg MCHC 32.1 (32-36) g/dl RDW 13.3 (11.5-14.0) % Plt Count 282 (150-450) K/mm3 MPV 10.2 (7.5-11.0) fl Gran % 60.1 (36.0-66.0) % Eos # (Auto) 0.30 (0-0.5) Absolute Lymphs (auto) 2.45 (1.0-4.6) Absolute Monos (auto) 0.65 (0.0-1.3) Lymphocytes % 28.3 (24.0-44.0) % Monocytes % 7.5 (0.0-12.0) % Eosinophils % 3.5 (0.00-5.0) % Basophils % 0.6 (0.0-0.4) % Absolute Granulocytes 5.21 (1.4-6.9) Basophils # 0.05 (0-0.4) Sodium 139 (137-145) mmol/L Potassium 3.8 (3.5-5.1) mmol/L Chloride 103 (98-107) mmol/L Carbon Dioxide 25 (22-30) mmol/L Anion Gap 14.7 (5-15) MEQ/L BUN 9 (7-17) mg/dL Creatinine 0.52 (0.52-1.04) mg/dL Estimated GFR > 60.0 ML/MIN Glucose 106 (74-106) mg/dL Calcium 9.1 (8.4-10.2) mg/dL Total Bilirubin < 0.10 L (0.2-1.3) mg/dL AST 22 (14-36) U/L ALT 14 (0-35) U/L Alkaline Phosphatase 53 (38-126) U/L Troponin I (0.000-0.034) ng/mL Serum Total Protein 6.6 (6.3-8.2) g/dL Albumin 4.1 (3.5-5.0) g/dL Lipase 48 (23-300) U/L Urine Color (YELLOW) Urine Appearance (CLEAR) Urine pH (5-6) Ur Specific [place] (1.005-1.025) Urine Protein (Negative) Urine Ketones (NEGATIVE) Urine Blood (0-5) Terence/ul Urine Nitrite (NEGATIVE) Urine Bilirubin (NEGATIVE) Urine Urobilinogen (0-1) mg/dL Ur Leukocyte Esterase (NEGATIVE) Urine WBC (Auto) (0-5) /HPF Urine RBC (Auto) (0-2) /HPF U Epithel Cells (Auto) (FEW) /HPF Urine Bacteria (Auto) (NEGATIVE) /HPF Urine Mucus (Auto) (NEGATIVE) /HPF Urine Culture Reflexed (NO) Urine Glucose (NEGATIVE) mg/dL Urine HCG, Qual NEGATIVE (Negative) 06/10/21 06/10/21 Range/Units 13:12 12:45 WBC (4.0-10.5) K/mm3 RBC (4.1-5.4) M/mm3 Hgb (12.0-16.0) gm/dl Hct (35-47) % MCV (78-100) fl MCH (26-32) pg MCHC (32-36) g/dl RDW (11.5-14.0) % Plt Count (150-450) K/mm3 MPV (7.5-11.0) fl Gran % (36.0-66.0) % Eos # (Auto) (0-0.5) Absolute Lymphs (auto) (1.0-4.6) Absolute Monos (auto) (0.0-1.3) Lymphocytes % (24.0-44.0) % Monocytes % (0.0-12.0) % Eosinophils % (0.00-5.0) % Basophils % (0.0-0.4) % Absolute Granulocytes (1.4-6.9) Basophils # (0-0.4) Sodium (137-145) mmol/L Potassium (3.5-5.1) mmol/L Chloride (98-107) mmol/L Carbon Dioxide (22-30) mmol/L Anion Gap (5-15) MEQ/L BUN (7-17) mg/dL Creatinine (0.52-1.04) mg/dL Estimated GFR ML/MIN Glucose (74-106) mg/dL Calcium (8.4-10.2) mg/dL Total Bilirubin (0.2-1.3) mg/dL AST (14-36) U/L ALT (0-35) U/L Alkaline Phosphatase (38-126) U/L Troponin I < 0.012 (0.000-0.034) ng/mL Serum Total Protein (6.3-8.2) g/dL Albumin (3.5-5.0) g/dL Lipase (23-300) U/L Urine Color YELLOW (YELLOW) Urine Appearance SLIGHTLY CLOUDY (CLEAR) Urine pH 6.0 (5-6) Ur Specific [place] 1.018 (1.005-1.025) Urine Protein NEGATIVE (Negative) Urine Ketones NEGATIVE (NEGATIVE) Urine Blood NEGATIVE (0-5) Terence/ul Urine Nitrite NEGATIVE (NEGATIVE) Urine Bilirubin NEGATIVE (NEGATIVE) Urine Urobilinogen NEGATIVE (0-1) mg/dL Ur Leukocyte Esterase NEGATIVE (NEGATIVE) Urine WBC (Auto) 3-5 (0-5) /HPF Urine RBC (Auto) 0-2 (0-2) /HPF U Epithel Cells (Auto) RARE (FEW) /HPF Urine Bacteria (Auto) NONE (NEGATIVE) /HPF Urine Mucus (Auto) SLIGHT (NEGATIVE) /HPF Urine Culture Reflexed NO (NO) Urine Glucose NEGATIVE (NEGATIVE) mg/dL Urine HCG, Qual (Negative) - Progress Progress: improved, re-examined Progress Note: 06/10/21 15:18 51-year-old is evaluated for right lower chest wall/upper abdominal pain. She is offered pain medication which she refused. Minimal pain on reevaluation. Pain is reproducible with palpation on the lower anterior chest wall. Abdominal exam is soft nontender. Minimal tenderness in the epigastric area. Normal lipase. Normal white count, grossly unremarkable chemistries. EKG showed sinus bradycardia but no acute ischemic changes and negative troponin. No shortness of breath. Does not think this is pulmonary embolism with reproducibility of the pain and no shortness of breath cough, have not done any work-up for that. X-rays negative reviewed by me, official report is pending. Seems more of a musculoskeletal, recommended Tylenol ibuprofen and outpatient follow-up. Discussed signs symptoms of worsening needing return to ER which she seems understanding. 06/10/21 15:20 Counseled pt/family regarding: lab results, diagnosis, need for follow-up, rad results - Departure Departure Disposition: Home Clinical Impression: Right-sided chest wall pain Condition: Stable Critical Care Time: No Referrals: GARETT CORRIGAN DO [Primary Care Provider] - (1-2 days for reevaluation) Instructions: Acute Abdomen (Belly Pain), Muscle Strain (DC) Additional Instructions: Take Tylenol/ibuprofen as needed for pain. Follow-up with primary care for reevaluation. Return to ER if pain is worsening or if develop shortness of breath/cough/fever chills etc.
[2021-06-10 13:43] VITALS: PULSE 60
[2021-06-10 13:45] LABS: Appearance SLIGHTLY CLOUDY (CLEAR); Bilirubin NEGATIVE (NEGATIVE); Blood NEGATIVE Ery/ul (0-5); Epithelial Cells RARE /HPF (FEW); Glucose NEGATIVE (NEGATIVE); Ketones NEGATIVE (NEGATIVE); Leukocyte Esterase NEGATIVE (NEGATIVE); Mucus SLIGHT /HPF (NEGATIVE); Nitrite NEGATIVE (NEGATIVE); Protein,Urine Dip NEGATIVE (Negative); RBC 0-2 /HPF (0-2); Specific Gravity 1.018 (1.005-1.025); Urobilinogen NEGATIVE mg/dL (0-1)
[2021-06-10 13:48] LABS: Absolute Neutrophil Ct (ANC) 5.21 (1.4-6.9); BASOPHIL % 0.6 % (0.0-0.4); Basophil (Absolute #) 0.05 (0-0.4); Eosinophil % 3.5 % (0.00-5.0); Hematocrit 38.3 % (35-47); Hemoglobin 12.3 gm/dl (12.0-16.0); Lymphocyte (Absolute #) 2.45 (1.0-4.6); Lymphocytes % 28.3 % (24.0-44.0); Mean Cell Volume 93.2 fl (78-100); Mean Corpuscular Hemoglobin 29.9 pg (26-32); Mean Corpuscular Hgb Concent. 32.1 g/dl (32-36); Mean Platelet Volume 10.2 fl (7.5-11.0); Monocyte (Absolute #) 0.65 (0.0-1.3); Monocytes % 7.5 % (0.0-12.0); Neutrophil % 60.1 % (36.0-66.0); Platelet Count 282 K/mm3 (150-450); Red Blood Count 4.11 M/mm3 (4.1-5.4); Red Cell Distribution Width 13.3 % (11.5-14.0); White Blood Count 8.7 K/mm3 (4.0-10.5)
[2021-06-10 14:03] LABS: ALBUMIN 4.1 g/dL (3.5-5.0); ALKALINE PHOSPHATASE 53 U/L (38-126); ANION GAP 14.7 MEQ/L (5-15); BILIRUBIN,TOTAL < 0.10 mg/dL (0.2-1.3); BLOOD UREA NITROGEN 9 mg/dL (7-17); CHLORIDE 103 mmol/L (98-107); Calcium 9.1 mg/dL (8.4-10.2); Carbon Dioxide 25 mmol/L (22-30); Creatinine 1 0.52 mg/dL (0.52-1.04); EST GLOMERULAR FILTRATION RATE > 60.0 ML/MIN; Glucose 106 mg/dL (74-106); LIPASE 48 U/L (23-300); Potassium 3.8 mmol/L (3.5-5.1); SGOT/AST 22 U/L (14-36); SGPT/ALT 14 U/L (0-35); SODIUM 139 mmol/L (137-145); Total Protein 6.6 g/dL (6.3-8.2)
[2021-06-10 15:34] VITALS: BP 138/85; O2SAT 96
--- NOTE | 2021-06-10 18:42 | XRAY ---
Indication: Right chest pain. Comparison: March 18, 2021. PA/lateral chest again demonstrates normal heart, lungs, and bony thorax with a few incidental calcified granulomas.
== END 2021-06-10 15:38 | disposition home or self-care (01) ==
LOC: ED 12:14
DX: R07.89 Other chest pain (principal)
CPT/HCPCS: 36000; 36415; 71046; 80053; 81001; 83690; 84484; 84703; 85025; 93005; 99284

== ENCOUNTER 2022-05-21 18:53 | Emergency (ER) | payer OTHER ==
[2022-05-21] MEDS ORDERED: SUBLIMAZE 100 MCG/2 ML IM ONE (19:10)
[2022-05-21] MEDS ORDERED: SUBLIMAZE 100 MCG/2 ML ONE (19:19)
[2022-05-21 20:59] VITALS: PULSE 74
[2022-05-21 21:08] VITALS: BP 124/74; O2SAT 99
[2022-05-21] MEDS ORDERED: DELTASONE 20 MG PO ONE (21:42)
--- NOTE | 2022-05-21 21:42 | ERPHSYRPT ---
- History of Present Illness Time Seen by Provider: 05/21/22 19:15 Source: patient Exam Limitations: no limitations Patient Subjective Stated Complaint: here for left hip pain for last 2 days, no injury Triage Nursing Assessment: pt alert, resp easy, skin w/d/p, was able to get undressed but cant bear a lot of wt on left leg Physician History: Patient is a 51-year-old white female presents with a complaint of pain in the left hip which starts in the left buttocks and rotates down the leg. Twisting or lifting the leg causes pain she also has pain with straight leg movement. She does have a history of degenerative disc disease in the lumbar spine. There is been no acute injury that the patient is aware of. Timing/Duration: day(s) (2) Quality: throbbing Hip Pain Location: hip (L) Severity of Pain-Max: moderate Severity of Pain-Current: moderate Modifying Factors: Improves With: movement Allergies/Adverse Reactions: morphine Allergy (Severe, Verified 05/21/22 19:01) hydrocodone bitartrate [From Vicodin] Allergy (Verified 05/21/22 19:01) Home Medications: Metoprolol Tartrate 25 mg [Lopressor 25MG Tab] 25 mg PO DAILY 06/10/21 [History] Hx Tetanus, Diphtheria Vaccination/Date Given: No Hx Influenza Vaccination/Date Given: No Hx Pneumococcal Vaccination/Date Given: No Immunizations Up to Date: Yes Travel Risk - International Travel Have you traveled outside of the country in past 3 weeks: No - Coronavirus Screening Are you exhibiting any of the following symptoms?: No Close contact with a COVID-19 positive Pt in past 14-21 Days: No - Vaccine Status Have you recieved a Covid-19 vaccination: No - Review of Systems Constitutional: No Fever, No Chills Eyes: No Symptoms Ears, Nose, & Throat: No Symptoms Respiratory: No Cough, No Dyspnea Cardiac: No Chest Pain, No Edema, No Syncope Abdominal/Gastrointestinal: No Abdominal Pain, No Nausea, No Vomiting, No Diarrhea Genitourinary Symptoms: No Dysuria Musculoskeletal: Back Pain, Joint Pain, No Neck Pain Skin: No Rash Neurological: No Dizziness, No Focal Weakness, No Sensory Changes Psychological: No Symptoms Endocrine: No Symptoms All Other Systems: Reviewed and Negative - Past Medical History Pertinent Past Medical History: Yes Neurological History: No Pertinent History ENT History: No Pertinent History Cardiac History: Other Respiratory History: No Pertinent History Endocrine Medical History: No Pertinent History Musculoskeletal History: Arthritis, Fibromyalgia GI Medical History: No Pertinent History History: No Pertinent History Psycho-Social History: No Pertinent History Female Reproductive Disorders: No Pertinent History Other Medical History: SEVERE ANXIETY - Past Surgical History Past Surgical History: Yes Neuro Surgical History: No Pertinent History Cardiac: No Pertinent History Respiratory: No Pertinent History Gastrointestinal: Cholecystectomy Genitourinary: No Pertinent History Musculoskeletal: No Pertinent History, Orthopedic Surgery Female Surgical History: Hysterectomy, Tubal Ligation Other Surgical History: tonsils. R foot, big toe - Social History Smoking Status: Never smoker Exposure to second hand smoke: Yes Drug Use: none Patient Lives Alone: No - Nursing Vital Signs Nursing Vital Signs: Initial Vital Signs Temperature 97.0 F 05/21/22 19:02 Pulse Rate 75 05/21/22 19:02 Respiratory Rate 18 05/21/22 19:02 Blood Pressure 134/63 05/21/22 19:02 O2 Sat by Pulse Oximetry 96 05/21/22 19:02 Pain Scale Pain Intensity 2 - Physical Exam General Appearance: no apparent distress, alert Eye Exam: PERRL/EOMI Ears, Nose, Throat Exam: normal ENT inspection, moist mucous membranes Neck Exam: normal inspection, non-tender, supple Respiratory Exam: normal breath sounds, lungs clear, No chest tenderness, No respiratory distress Cardiovascular Exam: regular rate/rhythm, No edema Gastrointestinal Exam: soft, No tenderness, No distention, No guarding Back Exam: normal inspection, normal range of motion, point tenderness (Left SI area) Extremity Exam: limited range of motion, swelling, tenderness Neurologic Exam: alert, oriented x 3, cooperative, molder labels II-XII nml as tested, sensation nml, No motor deficits Skin Exam: normal color, warm, dry, No rash SpO2 Interpretation: normal SpO2: 99 O2 Delivery: Room Air - Course Nursing assessment & vital signs reviewed: Yes - CT Exams Lumbar Spine CT Interpretation: Tele-radiologist Report Pelvis CT Interpretation: Tele-radiologist Report Ordered Tests: Active Orders 24 hr Category Date Time Status LOWER EXTREMITY WO CONTRAST [CT] Stat Exams 05/21/22 19:17 Taken LUMBAR SPINE W/O [CT] Stat Exams 05/21/22 19:18 Taken Medication Summary Discontinued Medications Generic Name Dose Route Start Last Admin Trade Name Freq PRN Reason Stop Dose Admin Fentanyl Citrate 75 mcg 05/21/22 19:10 05/21/22 19:21 Fentanyl Citrate 100 Mcg/2 Ml* Vial IM 05/21/22 19:11 75 mcg STAT ONE Administration Fentanyl Citrate Confirm 05/21/22 19:19 Fentanyl Citrate 100 Mcg/2 Ml* Vial Administered 05/21/22 19:20 Dose 100 mcg .ROUTE .STK-MED ONE - Progress Progress: unchanged - Departure Departure Disposition: Home Clinical Impression: Sciatica Condition: Stable Critical Care Time: No Referrals: GARETT CORRIGAN DO [Primary Care Provider] - Follow up/PCP as directed Instructions: Sciatica (DC) Prescriptions: Methylprednisolone Packet [Medrol Dosepack] 4 mg PO UD #1 packet Tramadol HCl 50 mg [Ultram 50 mg] 50 mg PO Q6H 3 Days #12 tablet
[2022-05-21] MEDS ORDERED: ULTRAM 50 MG PO ONE (21:43)
[2022-05-21] MEDS ORDERED: SUBLIMAZE 100 MCG/2 ML IV ONE (21:44)
[2022-05-21] MEDS ORDERED: ULTRAM 50 MG ONE (21:45)
[2022-05-21] MEDS ORDERED: HUMULIN R IV ONE (21:45)
[2022-05-21] MEDS ORDERED: DELTASONE 20 MG ONE (21:45)
--- NOTE | 2022-05-22 13:15 | XRAY ---
Exam: CT of the lumbar spine without IV contrast from 05/21/2022. CTDI: 37.54 mGy Comparison: 3 view lumbar spine series from 10/01/2021. Indication: 51-year-old female with low back pain and left hip pain. Technique: Axial non-IV contrast images were obtained through the lumbar spine and a portion of the sacrum. Reconstructed coronal and sagittal images were created and reviewed. Findings: There is a slight mid lumbar rotary levoscoliosis centered at L2-L3 on the CT timers inspector images. A tiny bone island is seen within the L1 vertebral body. I see no acute lumbar spine fracture, spondylolisthesis, or definite spondylolysis. There is mild to moderate narrowing of the L5-S1 interspace height associated with vacuum phenomena, discogenic sclerosis, and marginal spurring indicating degenerative disc disease at this level. I also note marked lumbar facet joint arthropathy at L4-L5, followed in severity by bilateral L5-S1 facet joint arthropathy. There is also mild left L4-L5 facet joint arthropathy. Some vacuum phenomena is seen within both sacroiliac joints. The images were filmed using a sharp filter for bone window technique. I see no gross disc herniation, although assessment in this regard is mildly limited. No central canal spinal stenosis is seen. There is some mild narrowing of the right L5-S1 neural foramen. Incidentally, a round/oval cyst measuring about +4.1 Hounsfield units is partially seen at the lower pole of the right kidney. This cyst measures +4.1 Hounsfield units. Impression: 1. Slight mid lumbar rotary levoscoliosis centered at L2-L3, degenerative facet joint arthropathy of L4-S1, as discussed above, and moderate degenerative disc disease at L5-S1 are seen. 2. No acute lumbar spine fracture, spondylolisthesis, or spondylolysis is seen. 3. No gross lumbar disc herniation or central canal spinal stenosis is seen.
--- NOTE | 2022-05-22 13:25 | XRAY ---
Exam: CT of the left femur without IV contrast from 05/21/2022. CTDI: 28.07 mGy Comparison: AP pelvis and left hip radiographs from 01/10/2021. Indication: Low back pain and left hip pain. Technique: Non-IV contrast axial images were obtained through the left femur. Reconstructed coronal and sagittal images were created and reviewed. Findings: I again note at least a couple tiny heterotopic soft tissue ossifications adjacent to the lateral margin of the greater trochanter of the left hip. This is unchanged from 01/10/2021. This is probably either degenerative or due to remote trauma. I see no acute fracture or dislocation. No bone destruction is seen. The left hip joint space is well-preserved and reveals smooth articular margins. There appear to be some superficial varicosities along the lateral aspect of the left thigh. A few normal sized lymph nodes are seen within the left femoral region, nonspecific. No other soft tissue abnormality is seen. Impression: 1. No acute fracture or or dislocation is seen. No significant articular abnormality of the left hip is seen. 2. A couple tiny heterotopic soft tissue calcifications are again seen adjacent to the lateral margin of the greater trochanter. This is unchanged from 01/10/2021. 3. Some superficial varicosities are seen along the lateral aspect of the left thigh.
== END 2022-05-21 22:00 | disposition home or self-care (01) ==
LOC: ED 18:53
DX: M54.32 Sciatica, left side (principal); M51.36 Other intervertebral disc degeneration, lumbar region; Z28.310 Unvaccinated for COVID-19; Z79.52 Long term (current) use of systemic steroids; Z79.891 Long term (current) use of opiate analgesic; Z79.899 Other long term (current) drug therapy
CPT/HCPCS: 72131; 73700; 96372; 99284; J3010; A9270-GY

== ENCOUNTER 2023-09-18 00:01 | Emergency (ER) | payer OTHER ==
[2023-09-18 00:20] VITALS: TEMP 97.5
--- NOTE | 2023-09-18 00:44 | ERPHSYRPT ---
- History of Present Illness Time Seen by Provider: 09/18/23 00:10 Historian: patient Patient Subjective Stated Complaint: pt states that she has had chest pain all day Triage Nursing Assessment: pt ambulated into the er; pt is axo x4; c/o chest pain; pt states burning to left side of chest; pt c/o lightheadedness, dizziness; c/o N/D denies vomiting; clear apical heart tone; clear lung sounds in all lobes; pt states it is hard to take deep breaths; pt denies SOB; no re spiratory distress present; no edema present; strong christie radial pulses; strong christie pedal pulses; skin PDW; hypertensive Physician History: Patient is a 53-year-old female presents to our ED for evaluation of chest pain that she states she has had "all day". Pain described as a burning sensation localized to the left side of the chest. No radiation. No shortness of breath or diaphoresis. Patient feels lightheaded and somewhat dizzy. She is nauseous. Patient advises that she has been experiencing some diarrhea as well. No fever. No rash. Symptoms are mild to moderate in intensity. No specific worsening improving factors. Patient is a non-smoker. Patient is otherwise generally healthy. No cardiac history. she voices no other complaints or concerns at this time. Portions of this note were created with voice recognition technology. There may be grammatical, spelling, punctuation or sound alike errors Timing/Duration: today Activities at Onset: none Quality: burning Location: other (Left chest) Chest Pain Radiation: no radiation Severity of Pain-Max: moderate Severity of Pain-Current: mild Modifying Factors: Improves With: nothing Associated Symptoms: nausea, other (Diarrhea) Prior Chest Pain/Cardiac Workup: no prior chest pain Nitro Today/Relief: no nitro taken today Aspirin Treatment Today: no aspirin today Allergies/Adverse Reactions: morphine Allergy (Severe, Verified 09/18/23 00:03) hydrocodone bitartrate [From Vicodin] Allergy (Verified 09/18/23 00:03) Home Medications: Metoprolol Tartrate 25 mg [Lopressor 25MG Tab] 25 mg PO DAILY 06/10/21 [History] Estradiol [Vivelle-Dot] 1 patch TP WEEKLY 09/18/23 [History] Ezetimibe [Zetia] 10 mg PO DAILY 09/18/23 [History] Hx Tetanus, Diphtheria Vaccination/Date Given: Yes Hx Influenza Vaccination/Date Given: No Hx Pneumococcal Vaccination/Date Given: No Travel Risk - International Travel Have you traveled outside of the country in past 3 weeks: No - Coronavirus Screening Are you exhibiting any of the following symptoms?: No Close contact with a COVID-19 positive Pt in past 14-21 Days: No - Vaccine Status Have you recieved a Covid-19 vaccination: No - Review of Systems Constitutional: No Symptoms, No Fever, No Chills Eyes: No Symptoms Ears, Nose, & Throat: No Symptoms Respiratory: No Symptoms, No Cough, No Dyspnea Cardiac: No Symptoms, No Chest Pain, No Edema, No Syncope Abdominal/Gastrointestinal: No Symptoms, No Abdominal Pain, No Nausea, No Vomiting, No Diarrhea Genitourinary Symptoms: No Symptoms, No Dysuria Musculoskeletal: No Symptoms, No Back Pain, No Neck Pain Skin: No Symptoms, No Rash Neurological: No Symptoms, No Dizziness, No Focal Weakness, No Sensory Changes Psychological: No Symptoms Endocrine: No Symptoms Hematologic/Lymphatic: No Symptoms Immunological/Allergic: No Symptoms All Other Systems: Reviewed and Negative - Past Medical History Pertinent Past Medical History: Yes Neurological History: No Pertinent History ENT History: No Pertinent History Cardiac History: Other Respiratory History: No Pertinent History Endocrine Medical History: No Pertinent History Musculoskeletal History: Arthritis, Fibromyalgia GI Medical History: No Pertinent History History: No Pertinent History Psycho-Social History: Anxiety Female Reproductive Disorders: No Pertinent History Other Medical History: SEVERE ANXIETY, mitral valve prolaspe - Past Surgical History Past Surgical History: Yes Neuro Surgical History: No Pertinent History Cardiac: No Pertinent History Respiratory: No Pertinent History Gastrointestinal: Cholecystectomy Genitourinary: No Pertinent History Musculoskeletal: No Pertinent History, Orthopedic Surgery Female Surgical History: Hysterectomy, Tubal Ligation Other Surgical History: tonsils. R foot, big toe - Social History Smoking Status: Never smoker Exposure to second hand smoke: Yes Drug Use: none Patient Lives Alone: No - Nursing Vital Signs Nursing Vital Signs: Initial Vital Signs Temperature 97.5 F 09/18/23 00:05 Pulse Rate 68 09/18/23 00:05 Respiratory Rate 18 09/18/23 00:05 Blood Pressure 153/80 09/18/23 00:05 O2 Sat by Pulse Oximetry 99 09/18/23 00:05 Pain Scale Pain Intensity 2 - Physical Exam General Appearance: no apparent distress, alert Eye Exam: PERRL/EOMI, eyes nml inspection Ears, Nose, Throat Exam: normal ENT inspection, TMs normal, pharynx normal, moist mucous membranes Neck Exam: normal inspection, non-tender, supple, full range of motion Respiratory Exam: normal breath sounds, lungs clear, airway intact, No respiratory distress Cardiovascular Exam: regular rate/rhythm, normal heart sounds, normal peripheral pulses Gastrointestinal/Abdomen Exam: soft, normal bowel sounds, No tenderness, No mass Back Exam: normal inspection, No CVA tenderness, No vertebral tenderness Extremity Exam: normal inspection, normal range of motion Neurologic Exam: alert, oriented x 3, cooperative, normal mood/affect, sensation nml, No motor deficits Skin Exam: normal color, warm, dry SpO2 Interpretation: normal SpO2: 97 O2 Delivery: Room Air - Course Nursing assessment & vital signs reviewed: Yes EKG Interpreted by Me: RATE (63), Sinus Rhythm, NORMAL AXIS, NORMAL INTERVALS - Radiology Exams Chest X-ray Interpretation: Interpreted by me (Negative chest x-ray) Ordered Tests: Active Orders 24 hr Category Date Time Status Manager Managed Care STAT Care 09/18/23 00:31 Active EKG-ER Only STAT Care 09/18/23 00:31 Active IV Insertion STAT Care 09/18/23 00:31 Active Pulse Oximetry (ED) STAT Care 09/18/23 00:31 Active CHEST 1 VIEW (PORTABLE) Stat Exams 09/18/23 01:52 Taken CBC W DIFF Stat Lab 09/18/23 00:50 Completed CMP Stat Lab 09/18/23 00:50 Completed D-DIMER QUANTITATIVE Stat Lab 09/18/23 00:50 Completed NT PRO BNPII Stat Lab 09/18/23 00:50 Completed TROPONIN Q4H Lab 09/18/23 00:50 Completed TROPONIN Q4H Lab 09/18/23 03:24 Completed TROPONIN Q4H Lab 09/18/23 08:45 Ordered Urine Triage Profile Stat Lab 09/18/23 01:47 Completed Medication Summary Discontinued Medications Generic Name Dose Route Start Last Admin Trade Name Freq PRN Reason Stop Dose Admin Aspirin 324 mg 09/18/23 00:45 09/18/23 00:50 Aspirin 81 Mg Tab.Chew PO 09/18/23 00:46 324 mg STAT ONE Administration Aspirin Confirm 09/18/23 00:49 Aspirin 81 Mg Tab.Chew Administered 09/18/23 00:50 Dose 324 mg .ROUTE .STK-MED ONE Nitroglycerin 1 gm 09/18/23 00:46 09/18/23 00:51 Nitroglycerin 1 Gm Packet TOP 09/18/23 00:47 1 gm STAT ONE Administration Nitroglycerin Confirm 09/18/23 00:49 Nitroglycerin 1 Gm Packet Administered 09/18/23 00:50 Dose 1 gm .ROUTE .STK-MED ONE Lab/Rad Data: Laboratory Result Diagrams 09/18/23 00:50 09/18/23 00:50 Laboratory Results 09/18/23 09/18/23 09/18/23 Range/Units 03:24 01:47 00:50 WBC (4.0-10.5) x10^3/uL RBC (4.1-5.4) x10^6/uL Hgb (12.0-16.0) g/dL Hct (35-47) % MCV (78-100) fL MCH (26-32) pg MCHC (32-36) g/dL RDW (11.5-14.0) % Plt Count (150-450) x10^3/uL MPV (7.5-11.0) fL Gran % (36.0-66.0) % Immature Gran % (Auto) (0.00-0.4) % Nucleat RBC Rel Count (0.00-0.1) % Eos # (Auto) (0-0.5) x10^3/uL Immature Gran # (Auto) (0.00-0.03) x10^3u/L Absolute Lymphs (auto) (1.0-4.6) x10^3/uL Absolute Monos (auto) (0.0-1.3) x10^3/uL Absolute Nucleated RBC (0.00-0.01) x10^3u/L Lymphocytes % (24.0-44.0) % Monocytes % (0.0-12.0) % Eosinophils % (0.00-5.0) % Basophils % (0.0-0.4) % Absolute Granulocytes (1.4-6.9) x10^3/uL Basophils # (0-0.4) x10^3/uL D-Dimer (0.0-0.50) mg/L Sodium (137-145) mmol/L Potassium (3.5-5.1) mmol/L Chloride (98-107) mmol/L Carbon Dioxide (22-30) mmol/L Anion Gap (5-15) MEQ/L BUN (7-17) mg/dL Creatinine (0.52-1.04) mg/dL Estimated GFR ML/MIN Glucose (74-106) mg/dL Calcium (8.4-10.2) mg/dL Total Bilirubin (0.2-1.3) mg/dL AST (14-36) U/L ALT (0-35) U/L Alkaline Phosphatase (38-126) U/L Troponin I < 0.012 (0.000-0.034) ng/mL NT-Pro-B Natriuret Pep 65.8 (<300) pg/mL Serum Total Protein (6.3-8.2) g/dL Albumin (3.5-5.0) g/dL Urine Opiates Level NEGATIVE (NEGATIVE) Ur Methadone NEGATIVE (NEGATIVE) Urine Barbiturates NEGATIVE (NEGATIVE) Ur Phencyclidine (PCP) NEGATIVE (NEGATIVE) Urine Amphetamine NEGATIVE (NEGATIVE) U Benzodiazepine Level NEGATIVE (NEGATIVE) Urine Cocaine NEGATIVE (NEGATIVE) Urine Marijuana (THC) NEGATIVE (NEGATIVE) 09/18/23 09/18/23 09/18/23 Range/Units 00:50 00:50 00:50 WBC (4.0-10.5) x10^3/uL RBC (4.1-5.4) x10^6/uL Hgb (12.0-16.0) g/dL Hct (35-47) % MCV (78-100) fL MCH (26-32) pg MCHC (32-36) g/dL RDW (11.5-14.0) % Plt Count (150-450) x10^3/uL MPV (7.5-11.0) fL Gran % (36.0-66.0) % Immature Gran % (Auto) (0.00-0.4) % Nucleat RBC Rel Count (0.00-0.1) % Eos # (Auto) (0-0.5) x10^3/uL Immature Gran # (Auto) (0.00-0.03) x10^3u/L Absolute Lymphs (auto) (1.0-4.6) x10^3/uL Absolute Monos (auto) (0.0-1.3) x10^3/uL Absolute Nucleated RBC (0.00-0.01) x10^3u/L Lymphocytes % (24.0-44.0) % Monocytes % (0.0-12.0) % Eosinophils % (0.00-5.0) % Basophils % (0.0-0.4) % Absolute Granulocytes (1.4-6.9) x10^3/uL Basophils # (0-0.4) x10^3/uL D-Dimer 0.31 (0.0-0.50) mg/L Sodium 139 (137-145) mmol/L Potassium 3.5 (3.5-5.1) mmol/L Chloride 103 (98-107) mmol/L Carbon Dioxide 29 (22-30) mmol/L Anion Gap 10.4 (5-15) MEQ/L BUN 9 (7-17) mg/dL Creatinine 0.65 (0.52-1.04) mg/dL Estimated GFR > 60.0 ML/MIN Glucose 87 (74-106) mg/dL Calcium 8.8 (8.4-10.2) mg/dL Total Bilirubin 0.30 (0.2-1.3) mg/dL AST 26 (14-36) U/L ALT 19 (0-35) U/L Alkaline Phosphatase 67 (38-126) U/L Troponin I < 0.012 (0.000-0.034) ng/mL NT-Pro-B Natriuret Pep (<300) pg/mL Serum Total Protein 6.9 (6.3-8.2) g/dL Albumin 4.3 (3.5-5.0) g/dL Urine Opiates Level (NEGATIVE) Ur Methadone (NEGATIVE) Urine Barbiturates (NEGATIVE) Ur Phencyclidine (PCP) (NEGATIVE) Urine Amphetamine (NEGATIVE) U Benzodiazepine Level (NEGATIVE) Urine Cocaine (NEGATIVE) Urine Marijuana (THC) (NEGATIVE) 09/18/23 Range/Units 00:50 WBC 10.1 (4.0-10.5) x10^3/uL RBC 4.22 (4.1-5.4) x10^6/uL Hgb 12.7 (12.0-16.0) g/dL Hct 38.9 (35-47) % MCV 92.2 (78-100) fL MCH 30.1 (26-32) pg MCHC 32.6 (32-36) g/dL RDW 12.6 (11.5-14.0) % Plt Count 289 (150-450) x10^3/uL MPV 10.0 (7.5-11.0) fL Gran % 55.9 (36.0-66.0) % Immature Gran % (Auto) 0.4 (0.00-0.4) % Nucleat RBC Rel Count 0.0 (0.00-0.1) % Eos # (Auto) 0 (0-0.5) x10^3/uL Immature Gran # (Auto) 0.04 H (0.00-0.03) x10^3u/L Absolute Lymphs (auto) 3.47 (1.0-4.6) x10^3/uL Absolute Monos (auto) 0.84 (0.0-1.3) x10^3/uL Absolute Nucleated RBC 0.00 (0.00-0.01) x10^3u/L Lymphocytes % 34.5 (24.0-44.0) % Monocytes % 8.3 (0.0-12.0) % Eosinophils % 0.0 (0.00-5.0) % Basophils % 0.9 (0.0-0.4) % Absolute Granulocytes 5.63 (1.4-6.9) x10^3/uL Basophils # 0.09 (0-0.4) x10^3/uL D-Dimer (0.0-0.50) mg/L Sodium (137-145) mmol/L Potassium (3.5-5.1) mmol/L Chloride (98-107) mmol/L Carbon Dioxide (22-30) mmol/L Anion Gap (5-15) MEQ/L BUN (7-17) mg/dL Creatinine (0.52-1.04) mg/dL Estimated GFR ML/MIN Glucose (74-106) mg/dL Calcium (8.4-10.2) mg/dL Total Bilirubin (0.2-1.3) mg/dL AST (14-36) U/L ALT (0-35) U/L Alkaline Phosphatase (38-126) U/L Troponin I (0.000-0.034) ng/mL NT-Pro-B Natriuret Pep (<300) pg/mL Serum Total Protein (6.3-8.2) g/dL Albumin (3.5-5.0) g/dL Urine Opiates Level (NEGATIVE) Ur Methadone (NEGATIVE) Urine Barbiturates (NEGATIVE) Ur Phencyclidine (PCP) (NEGATIVE) Urine Amphetamine (NEGATIVE) U Benzodiazepine Level (NEGATIVE) Urine Cocaine (NEGATIVE) Urine Marijuana (THC) (NEGATIVE) - Progress Progress: improved Air Movement: good Progress Note: Heart score of 3 which translates into a Mace of 0.9 to 1.7% 53-year-old female presents to our ED for evaluation of a burning pain in her chest. Pain is associated with mild nausea. Patient also has diarrhea. EKG reveals normal sinus rhythm. Chest x-ray is within normal limits. CBC CMP nonremarkable. D-dimer negative. BNP negative. Troponin negative x2. Urine triage/toxicology screen negative. Patient received nitroglycerin paste and aspirin in our ED. Patient reassessed. She remains asymptomatic. at bedside. They voiced no other complaints or concerns at this time. Will discharge home. They understand that follow-up with primary care doctor within 48 hours is important. Patient may require an outpatient stress test for further evaluation and treatment. Portions of this note were created with voice recognition technology. There may be grammatical, spelling, punctuation or sound alike errors Complexity of problem addressed is moderate acute complicated No critical care time Complex of data reviewed and analyzed is moderate. Test ordered test reviewed. Results were analyzed and correlated clinically with history and physical exam. Dr. Tariq independently reviewed the EKG as well as the chest x-ray Risk of complication and/or risk of morbidity/mortality of patient management is moderate. Vital stable. Time spent to discharge patient is approximately 10 minutes. Plan of care established for shared decision making. No social determinants of health present impede follow-up. Patient will follow-up with primary care doctor within 48 hours for reevaluation. Blood Culture(s) Obtained: No Antibiotics given: No Counseled pt/family regarding: lab results, diagnosis, need for follow-up - Departure Departure Disposition: Home Clinical Impression: Chest pain Condition: Stable Critical Care Time: No Referrals: GARETT CORRIGAN, [NON-STAFF PHY W/O PRIVILEGES] - Follow up/PCP as directed Additional Instructions: Discharge/Care Plan JOHN EUCEDA was seen on 09/18/23 in the Emergency Room. The patient was counseled regarding Diagnosis,Lab results, Imaging studies, need for follow up a nd when to return to the Emergency Room. Prescriptions given: Discharge Note I have spoken with the patient and/or caregivers. I have explained the patient's condition, diagnosis and treatment plan based on the information available to me at this time. I have answered the patient's and/or caregiver's questions and addressed any concerns. The patient and/or caregivers have as good understanding of the patient's diagnosis, condition and treatment plan as can be expected at this point. The vital signs have been stable. The patient's condition is stable and appropriate for discharge from the emergency department. The patient will pursue further outpatient evaluation with the primary care physician or other designated or consulting physician as outlined in the discharge instructions. The patient and/or caregivers are agreeable to this plan of care and follow-up instructions have been explained in detail. The patient and/or caregivers have received these instruction. The patient/and or caregivers are aware that any significant change in condition or worsening of symptoms should prompt an immediate return to this or the closest emergency department or call 911.
[2023-09-18] MEDS ORDERED: BABY ASPIRIN 81 MG CHEW PO ONE (00:45)
[2023-09-18] MEDS ORDERED: NITRO-BID 2% UD PACKETS TOP ONE (00:46)
[2023-09-18] MEDS ORDERED: NITRO-BID 2% UD PACKETS ONE (00:49)
[2023-09-18] MEDS ORDERED: BABY ASPIRIN 81 MG CHEW ONE (00:49)
[2023-09-18 00:58] LABS: Absolute Neutrophil Ct (ANC) 5.63 x10^3/uL (1.4-6.9); BASOPHIL % 0.9 % (0.0-0.4); Basophil (Absolute #) 0.09 x10^3/uL (0-0.4); Eosinophil (Absolute #) 0 x10^3/uL (0-0.5); Hematocrit 38.9 % (35-47); Hemoglobin 12.7 g/dL (12.0-16.0); IMMATURE GRAN # 0.04 x10^3u/L (0.00-0.03); IMMATURE GRAN % 0.4 % (0.00-0.4); Lymphocyte (Absolute #) 3.47 x10^3/uL (1.0-4.6); Lymphocytes % 34.5 % (24.0-44.0); Mean Cell Volume 92.2 fL (78-100); Mean Corpuscular Hemoglobin 30.1 pg (26-32); Mean Corpuscular Hgb Concent. 32.6 g/dL (32-36); Monocyte (Absolute #) 0.84 x10^3/uL (0.0-1.3); Monocytes % 8.3 % (0.0-12.0); Neutrophil % 55.9 % (36.0-66.0); Platelet Count 289 x10^3/uL (150-450); Red Blood Count 4.22 x10^6/uL (4.1-5.4); Red Cell Distribution Width 12.6 % (11.5-14.0); White Blood Count 10.1 x10^3/uL (4.0-10.5)
[2023-09-18 01:10] LABS: ALBUMIN 4.3 g/dL (3.5-5.0); ALKALINE PHOSPHATASE 67 U/L (38-126); ANION GAP 10.4 MEQ/L (5-15); BLOOD UREA NITROGEN 9 mg/dL (7-17); CHLORIDE 103 mmol/L (98-107); Calcium 8.8 mg/dL (8.4-10.2); Carbon Dioxide 29 mmol/L (22-30); Creatinine 1 0.65 mg/dL (0.52-1.04); EST GLOMERULAR FILTRATION RATE > 60.0 ML/MIN; Glucose 87 mg/dL (74-106); Potassium 3.5 mmol/L (3.5-5.1); SGOT/AST 26 U/L (14-36); SGPT/ALT 19 U/L (0-35); SODIUM 139 mmol/L (137-145); Total Protein 6.9 g/dL (6.3-8.2)
[2023-09-18 02:59] LABS: Barbiturate,Urine NEGATIVE (NEGATIVE); Benzodiazepine,Urine NEGATIVE (NEGATIVE); Cocaine,Urine NEGATIVE (NEGATIVE); Methadone,Urine NEGATIVE (NEGATIVE); Opiate,Urine NEGATIVE (NEGATIVE); PCP,Urine NEGATIVE (NEGATIVE); THC,Urine NEGATIVE (NEGATIVE)
[2023-09-18 03:01] LABS: Amphetamine,Urine NEGATIVE (NEGATIVE)
[2023-09-18 04:01] VITALS: BP 105/69; PULSE 72; RESP 8
[2023-09-18 04:04] VITALS: O2SAT 97
--- NOTE | 2023-09-18 08:46 | XRAY ---
Indication: Chest pain. Comparison: June 10, 2021 Portable apical lordotic chest again demonstrates normal heart, lungs, and bony thorax with a few incidental tiny calcified granulomas.
== END 2023-09-18 04:16 | disposition home or self-care (01) ==
LOC: ED 00:01
DX: R07.9 Chest pain, unspecified (principal); R42 Dizziness and giddiness; R11.0 Nausea; R19.7 Diarrhea, unspecified; Z79.899 Other long term (current) drug therapy; Z28.310 Unvaccinated for COVID-19
CPT/HCPCS: 36000; 36415; 71045; 80053; 80307; 83880; 84484; 85025; 85379; 93005; 93041; 94760; 99284; A9270-GY

== ENCOUNTER 2023-12-28 17:36 | Emergency (ER) | payer OTHER ==
[2023-12-28 19:03] VITALS: TEMP 97.2
--- NOTE | 2023-12-28 19:39 | ERPHSYRPT ---
- History of Present Illness Time Seen by Provider: 12/28/23 19:10 Source: patient, family Exam Limitations: no limitations Patient Subjective Stated Complaint: pt here for a fall today,she was on phone trying to get her dog food out and fell, no loc, co pain to right arm, right ankle, tailbone, shoulders and back Triage Nursing Assessment: pt arrived per wc able to get in bed and undress,alert, resp easy, skin w/d/p. no bruising or abrasions noted. moves all ext well Physician History: This is a 53-year-old overweight white female patient who was on the phone earlier this afternoon attempting to also get dog food when she fell. She has mild pain complaints and several areas. Ultimately, the patient, the patient's spouse and I settled on her most concerned areas of discomfort are her right ankle and lower back. Patient states she did not hit her head. She does not have a headache or neck pain. She did not lose consciousness. Patient does have a history of hypertension. Patient is allergic to morphine and hydrocodone but has taken Percocet in the past without any significant reactions per her and her spouse is report. Occurred: this afternoon Reason for Fall: lost balance Injuries/Pain Location: back (Lumbar level of her back), lower extremity (Right ankle) Loss of Consciousness: no loss of consciousness Severity of Pain-Max: moderate Severity of Pain-Current: moderate Modifying Factors: Improves With: movement Associated Symptoms (Fall): denies symptoms Allergies/Adverse Reactions: morphine Allergy (Severe, Verified 12/28/23 19:04) hydrocodone bitartrate [From Vicodin] Allergy (Verified 12/28/23 19:04) Home Medications: Metoprolol Tartrate 25 mg [Lopressor 25MG Tab] 25 mg PO DAILY 06/10/21 [History] Estradiol [Vivelle-Dot] 1 patch TP WEEKLY 09/18/23 [History] Ezetimibe [Zetia] 10 mg PO DAILY 09/18/23 [History] Hx Tetanus, Diphtheria Vaccination/Date Given: Yes Hx Influenza Vaccination/Date Given: No Hx Pneumococcal Vaccination/Date Given: No Immunizations Up to Date: Yes Travel Risk - International Travel Have you traveled outside of the country in past 3 weeks: No - Coronavirus Screening Are you exhibiting any of the following symptoms?: No - Vaccine Status Have you recieved a Covid-19 vaccination: No - Review of Systems Constitutional: No Symptoms Eyes: No Symptoms Ears, Nose, & Throat: No Symptoms Respiratory: No Symptoms Cardiac: No Symptoms Abdominal/Gastrointestinal: No Symptoms Genitourinary Symptoms: No Symptoms Musculoskeletal: Back Pain, Fall, Joint Pain (Right ankle) Skin: No Symptoms Neurological: No Symptoms Psychological: No Symptoms Endocrine: No Symptoms Hematologic/Lymphatic: No Symptoms Immunological/Allergic: No Symptoms All Other Systems: Reviewed and Negative - Past Medical History Pertinent Past Medical History: Yes Neurological History: No Pertinent History ENT History: No Pertinent History Cardiac History: Other Respiratory History: No Pertinent History Endocrine Medical History: No Pertinent History Musculoskeletal History: Arthritis, Fibromyalgia GI Medical History: No Pertinent History History: No Pertinent History Psycho-Social History: Anxiety Female Reproductive Disorders: No Pertinent History Other Medical History: SEVERE ANXIETY, mitral valve prolaspe - Past Surgical History Past Surgical History: Yes Neuro Surgical History: No Pertinent History Cardiac: No Pertinent History Respiratory: No Pertinent History Gastrointestinal: Cholecystectomy Genitourinary: No Pertinent History Musculoskeletal: No Pertinent History, Orthopedic Surgery Female Surgical History: Hysterectomy, Tubal Ligation Other Surgical History: tonsils. R foot, big toe - Social History Smoking Status: Never smoker Exposure to second hand smoke: Yes Drug Use: none Patient Lives Alone: No - Nursing Vital Signs Nursing Vital Signs: Initial Vital Signs Pulse Rate 57 L 12/28/23 19:00 Respiratory Rate 20 12/28/23 19:00 Blood Pressure 131/89 12/28/23 19:00 O2 Sat by Pulse Oximetry 98 12/28/23 19:00 Pain Scale Pain Intensity 8 - [place] Coma Score Best Eye Response ([place]): (4) open spontaneously Best Verbal Response ([place]): (5) oriented Best Motor Response ([place]): (6) obeys commands [place] Total: 15 - Physical Exam General Appearance: no apparent distress, alert, anxiety Head Injury: no evidence of injury Eye Exam: PERRL/EOMI, eyes nml inspection ENT Exam: airway nml, nml ext.inspection Neck Exam: supple, trachea midline, full range of motion, normal alignment, normal inspection Respiratory/Chest Exam: normal breath sounds, No chest tenderness, No respiratory distress, No ecchymosis, No crepitus Cardiovascular Exam: normal heart sounds, regular rate/rhythm Gastrointestinal Exam: No tenderness Rectal Exam: not done Back Exam: normal inspection, normal range of motion, muscle spasm (Lumbar level) Extremity Exam: normal inspection, normal range of motion, tenderness (Right ankle lateral aspect with mild swelling present. There is full range of motion present. Patient is neurovascularly intact.) Neurologic Exam: alert, oriented x 3, cooperative, roving or yarn color checker II-XII nml as tested, normal mood/affect, sensation nml Skin Exam: normal color, warm, dry SpO2 Interpretation: normal SpO2: 98 O2 Delivery: Room Air - Course Nursing assessment & vital signs reviewed: Yes Ordered Tests: Active Orders 24 hr Category Date Time Status Yohan Bandage Application -[facility] STAT Care 12/28/23 20:30 Ordered ANKLE (3 VIEWS) Stat Exams 12/28/23 19:39 Taken LUMBAR LIMITED (2 OR 3 VIEWS) Stat Exams 12/28/23 19:39 Taken Medication Summary Discontinued Medications Generic Name Dose Route Start Last Admin Trade Name Franklynq PRN Reason Stop Dose Admin Ibuprofen 600 mg 12/28/23 20:00 12/28/23 20:11 Ibuprofen 600 Mg Tablet PO 12/28/23 20:01 600 mg STAT ONE Administration Ibuprofen Confirm 12/28/23 20:09 Ibuprofen 600 Mg Tablet Administered 12/28/23 20:10 Dose 600 mg .ROUTE .STK-MED ONE Oxycodone/Acetaminophen 1 tab 12/28/23 20:00 12/28/23 20:11 Oxycodone Hcl/Apap 5 Mg/325 Mg Tablet PO 12/28/23 20:01 1 tab STAT STA Administration Oxycodone/Acetaminophen Confirm 12/28/23 20:08 Oxycodone Hcl/Apap 5 Mg/325 Mg Tablet Administered 12/28/23 20:09 Dose 1 tab .ROUTE .STK-MED ONE - Progress Progress: improved, pain not gone completely, re-examined Progress Note: 12/28/23 20:15 This patient's medical issue is 1 of low complexity. The level of complexity in the workup performed is based on review of the patient's past medical history, review the patient's medication list, review the patient drug allergy list, history present illness and physical findings on examination. The workup in this patient includes x-ray of her lumbar spine and x-ray of the right ankle. Patient states that she has had Percocet in the past without any complaints of side effects. This was confirmed by the patient's spouse. 12/28/23 20:31 X-ray of the lumbar spine was interpreted by me. There is no evidence of any acute fracture or subluxation. There are chronic changes noted. X-ray of the right ankle shows no acute fracture or dislocation. Counseled pt/family regarding: diagnosis, need for follow-up, rad results Medical Desision Making - Independent Historian Additional History obtained from: Spouse - Diagnostic Testing Diagnostic test were ordered, analyzed, and reviewed by me: Yes Radiological Interpretation: Interpreted by me - Risk of complications Low Risk: Low risk of morbidity from additional dx testing or treatment - Departure Departure Disposition: Home Clinical Impression: Right ankle sprain, Low back pain, Fall with no significant injury Condition: Stable Critical Care Time: No Referrals: CARMEN CA DO [Primary Care Provider] - Follow up/PCP as directed Additional Instructions: Ice pack to tender area 3 times a day for the next 48 hours. Follow-up with [facility] orthopedic clinic, Friday through Friday 8 AM to 10 AM for persistent pain symptoms. May also follow-up with Dr. Lan, podiatry. Call his office on 12/29/2023 to make arranges for follow-up appointment if you are pain persists or worsens. The final interpretation of the x-rays will be performed tomorrow morning by the radiologist. If the findings are dif ferent than what I interpreted, you will receive a phone call before noon.
[2023-12-28] MEDS ORDERED: PERCOCET TABLET 5/325MG PO STA ×2 (20:00→20:30)
[2023-12-28] MEDS ORDERED: MOTRIN 600 MG PO ONE (20:00)
[2023-12-28 20:04] VITALS: BP 146/82; PULSE 57; RESP 17
[2023-12-28] MEDS ORDERED: PERCOCET TABLET 5/325MG ONE ×2 (20:08→20:38)
[2023-12-28] MEDS ORDERED: MOTRIN 600 MG ONE (20:09)
[2023-12-28 20:17] VITALS: O2SAT 98
--- NOTE | 2023-12-29 08:36 | XRAY ---
Indication: Pain following fall. Comparison: CT lumbar spine May 21, 2022 3 view lumbar spine unchanged again demonstrating normal alignment, moderate L4-S1 degenerative changes, and cholecystectomy clips. No new/acute bony, articular, or soft tissue abnormalities.
--- NOTE | 2023-12-29 08:38 | XRAY ---
Indication: Pain following fall. Comparison: None 3 view right ankle demonstrates small plantar heel spur. No other bony, articular, or soft tissue abnormalities.
== END 2023-12-28 20:55 | disposition home or self-care (01) ==
LOC: ED 17:36
DX: S93.401A Sprain of unspecified ligament of right ankle, initial encounter (principal); W19.XXXA Unspecified fall, initial encounter; M54.50 Low back pain, unspecified; I10 Essential (primary) hypertension; Z79.899 Other long term (current) drug therapy; Z28.310 Unvaccinated for COVID-19
CPT/HCPCS: 72100; 73610; 99283; A9270-GY

== ENCOUNTER 2024-09-07 16:35 | Emergency (ER) | payer SELFPAY ==
[2024-09-07 16:53] VITALS: PULSE 76; TEMP 98.8; O2SAT 97
--- NOTE | 2024-09-07 17:06 | ERPHSYRPT ---
- History of Present Illness Time Seen by Provider: 09/07/24 17:04 Source: patient Exam Limitations: no limitations Patient Subjective Stated Complaint: pt had strep a month ago and has went down hill since then with a cough with thick mucus and thinks that she has a christie ear infection Triage Nursing Assessment: Pt brought self to the ER, hypertensive, rates rib/chest pain from coughing, reports that she can't hear out of both ears, pulses normal, skin n/w/d, productive cough but hasn't looked at the sputum, denies shortness of breath unless she is coughing Physician History: 54-year-old female presents to emergency department for evaluation of a productive cough. Cough productive of clear sputum. Patient reports that symptoms started approximately 1 month ago after strep throat which was treated with amoxicillin. Patient complains of bilateral ear pain. No difficulty hearing. No dizziness. Patient denies throat pain. No chest pain no shortness of breath. Symptoms are mild to moderate in intensity. No specific worsening or improving factors. Patient otherwise feels well. She voices no other complaints or concerns at this time. Portions of this note were created with voice recognition technology. There may be grammatical, spelling, punctuation or sound alike errors Timing/Duration: today Severity: moderate Modifying Factors: Improves With: nothing Associated Symptoms: denies symptoms Allergies/Adverse Reactions: morphine Allergy (Severe, Verified 09/07/24 16:53) hydrocodone bitartrate [From Vicodin] Allergy (Verified 09/07/24 16:53) Home Medications: Metoprolol Tartrate 25 mg [Lopressor 25MG Tab] 25 mg PO DAILY 06/10/21 [History] Ezetimibe [Zetia] 10 mg PO DAILY 09/18/23 [History] PARoxetine HCL [Paroxetine HCl] 10 mg PO DAILY 09/07/24 [History] Hx Tetanus, Diphtheria Vaccination/Date Given: Yes Hx Influenza Vaccination/Date Given: No Hx Pneumococcal Vaccination/Date Given: No Travel Risk - International Travel Have you traveled outside of the country in past 3 weeks: No - Emerging Infectious Disease Are you exhibiting symptoms associated with any current EIDs: Yes Symptoms: Cough: New Onset - Review of Systems Constitutional: No Symptoms, No Fever, No Chills Eyes: No Symptoms Ears, Nose, & Throat: No Symptoms Respiratory: No Symptoms, No Cough, No Dyspnea Cardiac: No Symptoms, No Chest Pain, No Edema, No Syncope Abdominal/Gastrointestinal: No Symptoms, No Abdominal Pain, No Nausea, No Vomiting, No Diarrhea Genitourinary Symptoms: No Symptoms, No Dysuria Musculoskeletal: No Symptoms, No Back Pain, No Neck Pain Skin: No Symptoms, No Rash Neurological: No Symptoms, No Dizziness, No Focal Weakness, No Sensory Changes Psychological: No Symptoms Endocrine: No Symptoms Hematologic/Lymphatic: No Symptoms Immunological/Allergic: No Symptoms All Other Systems: Reviewed and Negative - Past Medical History Pertinent Past Medical History: Yes Neurological History: No Pertinent History ENT History: No Pertinent History Cardiac History: Other Respiratory History: No Pertinent History Endocrine Medical History: No Pertinent History Musculoskeletal History: Arthritis, Fibromyalgia GI Medical History: No Pertinent History History: No Pertinent History Psycho-Social History: Anxiety Female Reproductive Disorders: No Pertinent History Other Medical History: SEVERE ANXIETY, mitral valve prolaspe - Past Surgical History Past Surgical History: Yes Neuro Surgical History: No Pertinent History Cardiac: No Pertinent History Respiratory: No Pertinent History Gastrointestinal: Cholecystectomy Genitourinary: No Pertinent History Musculoskeletal: No Pertinent History, Orthopedic Surgery Female Surgical History: Hysterectomy, Tubal Ligation Other Surgical History: tonsils. R foot, big toe - Female History Hx Now: No (hysterectomy) - Social History Smoking Status: Never smoker Exposure to second hand smoke: Yes Drug Use: none Patient Lives Alone: No - Social Determinants of Health Will the patient participate in the screening: Yes Do you worry about a steady place to live?: No Do you have any problems with any of the following?: No known problems In the past 12 months,have you had to go without utilities?: No Transportation Issues: No Has anyone in your support network made you feel unsafe?: No Have you or anyone in your house had to go without enough: No - Nursing Vital Signs Nursing Vital Signs: Initial Vital Signs Temperature 98.8 F 09/07/24 16:40 Pulse Rate 76 09/07/24 16:40 Blood Pressure 160/80 09/07/24 16:40 O2 Sat by Pulse Oximetry 97 09/07/24 16:40 Pain Scale Pain Intensity 4 - Physical Exam General Appearance: no apparent distress, alert Eye Exam: PERRL/EOMI, eyes nml inspection Ears, Nose, Throat Exam: normal ENT inspection, TMs normal, pharynx normal, moist mucous membranes Neck Exam: normal inspection, non-tender, supple, full range of motion Respiratory Exam: normal breath sounds, airway intact, rhonchi, No respiratory distress Cardiovascular Exam: regular rate/rhythm, normal heart sounds, normal peripheral pulses Gastrointestinal/Abdomen Exam: soft, normal bowel sounds, No tenderness, No mass Back Exam: normal inspection, normal range of motion, No CVA tenderness, No vertebral tenderness Extremity Exam: normal inspection, normal range of motion, pelvis stable Neurologic Exam: alert, oriented x 3, cooperative, normal mood/affect, sensation nml, No motor deficits Skin Exam: normal color, warm, dry, No rash Lymphatic Exam: No adenopathy SpO2 Interpretation: normal SpO2: 97 O2 Delivery: Room Air - Course Nursing assessment & vital signs reviewed: Yes Ordered Tests: Medication Summary Discontinued Medications Generic Name Dose Route Start Last Admin Trade Name Freq PRN Reason Stop Dose Admin Dexamethasone Sodium Phosphate 10 mg 09/07/24 17:03 Dexamethasone Sod Phosphate 10 Mg/Ml IM 09/07/24 17:04 STAT ONE - Progress Progress: improved Progress Note: 54-year-old female presents to our ED for evaluation of a cough productive of clear sputum. Bilateral ear pain as well. Physical exam is negative for otitis media or otitis externa. Ear exam is within normal limits. Lung exam reveals mildly coarse breath sounds. Breathing rate was within normal limits. Oxygenation is within normal limits. Patient is not in respiratory distress. We will hold off on a chest x-ray at this time. However we will treat patient's symptoms. Patient received a IM dose of Decadron. A prescription for a Z-Montez forwarded to patient's pharmacy. Patient agrees to follow-up with her primary care doctor within 48 hours for reevaluation. She voices no other complaints or concerns at this time. Portions of this note were created with voice recognition technology. There may be grammatical, spelling, punctuation or sound alike errors Complexity of problem addressed is moderate acute complicated. No critical care time. Complex of data reviewed and analyzed is none. Diagnosis made based on history and physical exam. Risk of complication and or risk of morbidity/mortality patient management is moderate. A prescription for a Z-Montez forwarded to patient's pharmacy. Vital stable. Time spent to discharge patient is approximately 10 minutes. Plan of care established for shared decision making. No social determinants felt present to impede follow-up. Portions of this note were created with voice recognition technology. There may be grammatical, spelling, punctuation or sound alike errors 09/07/24 17:10 Counseled pt/family regarding: diagnosis, need for follow-up - Departure Departure Disposition: Home Clinical Impression: Cough, Bronchitis Condition: Stable Critical Care Time: No Referrals: CARMEN CA, [Primary Care Provider] - Follow up/PCP as directed Additional Instructions: Discharge/Care Plan JOHN EUCEDA was seen on 09/07/24 in the Emergency Room. The patient was counseled regarding Diagnosis,Lab results, Imaging studies, need for follow up and when to return to the Emergency Room. Prescriptions given: Discharge Note I have spoken with the patient and/or caregivers. I have explained the patient's condition, diagnosis and treatment plan based on the information available to me at this time. I have answered the patient's and/or caregiver's questions and addressed any concerns. The patient and/or caregivers have as good understanding of the patient's diagnosis, condition and treatment plan as can be expected at this point. The vital signs have been stable. The patient's condition is stable and appropriate for discharge from the emergency department. The patient will pursue further outpatient evaluation with the primary care physician or other designated or consulting physician as outlined in the discharge instructions. The patient and/or caregivers are agreeable to this plan of care and follow-up instructions have been explained in detail. The patient and/or caregivers have received these instruction. The patient/and or caregivers are aware that any significant change in condition or worsening of symptoms should prompt an immediate return to this or the closest emergency department or call 911. Prescriptions: Azithromycin 250 mg [Zithromax 250 MG TABLET] 250 mg PO ZPACK #6 tablet
[2024-09-07] MEDS ORDERED: DECADRON 10MG INJ. ONE (17:10)
[2024-09-07] MEDS: DECADRON 10MG INJ. IM ONE (17:11)
[2024-09-07 17:13] VITALS: BP 159/83
== END 2024-09-07 17:26 | disposition home or self-care (01) ==
LOC: ED 16:35
DX: J40 Bronchitis, not specified as acute or chronic (principal); R05.2 Subacute cough; Z79.899 Other long term (current) drug therapy
CPT/HCPCS: 96372; 99283; J1100

== ENCOUNTER 2025-03-31 14:32 | Emergency (ER) | payer OTHER ==
[2025-03-31 15:01] VITALS: TEMP 97.9
--- NOTE | 2025-03-31 15:14 | ERPHSYRPT ---
- History of Present Illness Time Seen by Provider: 03/31/25 14:42 Historian: patient Exam Limitations: no limitations Patient Subjective Stated Complaint: PT. STATES, "I HAVE BEEN HAVING ABDOMINAL PAIN FOR ABOUT A WEEK AND I'M NAUSEA. I SAW SHALOM SEPULVEDA TODAY AND HAD BLOOD WORK DONE AND SHE ORDERED A CAT SCAN, BUT I'VE BEEN WAITING 2 HOUR FOR MY INSURANCE TO APROVE THE TEST. I'M HURTING TOO BAD TO WAIT ANY LONGER." Triage Nursing Assessment: PT. AMBULATES TO ROOM WITHOUT DIFF., SKIN P/W/D, RESP EVEN UNLABORED, NO EDEMA, ABLE TO MOVE ALL FOUR EXT. Physician History: 54-year-old female with history of fibromyalgia presented in the ER with complaint of lower abdominal pain more on the right side for almost 1 week with progressive worsening. Patient reports moderate to severe intensity cramping with no significant aggravating or relieving factors. Reports associated nausea but no vomiting. Denies any urinary complaints. Has history of hysterectomy and cholecystectomy. No fever or chills reported. Patient was initially seen at primary care office, was recommended lab work and CT imaging, patient has lab work done but was waiting for insurance approval for CT and decided to check in the ER. Allergies/Adverse Reactions: morphine Allergy (Severe, Verified 09/07/24 16:53) hydrocodone bitartrate [From Vicodin] Allergy (Verified 09/07/24 16:53) Home Medications: Metoprolol Tartrate 25 mg [Lopressor 25MG Tab] 25 mg PO DAILY 06/10/21 [History] Ezetimibe [Zetia] 10 mg PO DAILY 09/18/23 [History] PARoxetine HCL [Paroxetine HCl] 10 mg PO DAILY 09/07/24 [History] Hx Tetanus, Diphtheria Vaccination/Date Given: Yes Hx Influenza Vaccination/Date Given: No Hx Pneumococcal Vaccination/Date Given: No Immunizations Up to Date: No Travel Risk - International Travel Have you traveled outside of the country in past 3 weeks: No - Emerging Infectious Disease Are you exhibiting symptoms associated with any current EIDs: No Symptoms: Cough: New Onset - Review of Systems Constitutional: No Symptoms Ears, Nose, & Throat: No Symptoms Respiratory: No Symptoms Cardiac: No Symptoms Abdominal/Gastrointestinal: Abdominal Pain, Nausea Genitourinary Symptoms: No Symptoms Musculoskeletal: Myalgias Skin: No Symptoms Neurological: No Symptoms Endocrine: No Symptoms Hematologic/Lymphatic: No Symptoms - Past Medical History Pertinent Past Medical History: Yes Neurological History: No Pertinent History ENT History: No Pertinent History Cardiac History: Other Respiratory History: No Pertinent History Endocrine Medical History: No Pertinent History Musculoskeletal History: Arthritis, Fibromyalgia GI Medical History: No Pertinent History History: No Pertinent History Psycho-Social History: Anxiety Female Reproductive Disorders: No Pertinent History Other Medical History: SEVERE ANXIETY, mitral valve prolaspe - Past Surgical History Past Surgical History: Yes Neuro Surgical History: No Pertinent History Cardiac: No Pertinent History Respiratory: No Pertinent History Gastrointestinal: Cholecystectomy Genitourinary: No Pertinent History Musculoskeletal: No Pertinent History, Orthopedic Surgery Female Surgical History: Hysterectomy, Tubal Ligation Other Surgical History: tonsils. R foot, big toe - Female History Hx Now: No - Social History Smoking Status: Never smoker Exposure to second hand smoke: Yes Drug Use: none - Social Determinants of Health Will the patient participate in the screening: Yes Do you worry about a steady place to live?: No Do you have any problems with any of the following?: No known problems In the past 12 months,have you had to go without utilities?: No Transportation Issues: No Has anyone in your support network made you feel unsafe?: No Have you or anyone in your house had to go w/o enough food: No - Nursing Vital Signs Nursing Vital Signs: Initial Vital Signs Temperature 97.9 F 03/31/25 14:32 Pulse Rate 68 03/31/25 14:32 Respiratory Rate 18 03/31/25 14:32 Blood Pressure 158/79 03/31/25 14:32 O2 Sat by Pulse Oximetry 97 03/31/25 14:32 Pain Scale Pain Intensity 5 - Physical Exam General Appearance: no apparent distress Eye Exam: PERRL/EOMI Ears, Nose, Throat Exam: normal ENT inspection Neck Exam: normal inspection, non-tender, supple, full range of motion Respiratory Exam: normal breath sounds, lungs clear Cardiovascular Exam: regular rate/rhythm, normal heart sounds Gastrointestinal/Abdomen Exam: soft, normal bowel sounds, tenderness (Lower abdomen more on the right side with minimal guarding but no rebound tenderness.) Back Exam: No CVA tenderness Extremity Exam: normal inspection, normal range of motion Neurologic Exam: alert, oriented x 3, cooperative Skin Exam: normal color SpO2 Interpretation: normal SpO2: 97 O2 Delivery: Room Air Ordered Tests: Active Orders 24 hr Category Date Time Status IV Insertion STAT Care 03/31/25 15:12 Active NPO (ED) STAT Care 03/31/25 15:12 Active ABDOMEN AND PELVIS W CONTRAST [CT] Stat Exams 03/31/25 15:12 Completed LIPASE Stat Lab 03/31/25 13:28 Completed Medication Summary Discontinued Medications Generic Name Dose Route Start Last Admin Trade Name Miles PRN Reason Stop Dose Admin Sodium Chloride 1,000 mls @ 999 mls/hr 03/31/25 15:12 03/31/25 16:58 Sodium Chloride 0.9% 1000 Ml IV 03/31/25 16:12 999 mls/hr .Q1H1M STA Administration Sodium Chloride Confirm 03/31/25 16:56 Sodium Chloride 0.9% 1000 Ml Administered 03/31/25 16:57 Dose 1,000 mls @ ud .ROUTE .STK-MED ONE Ketorolac Tromethamine 30 mg 03/31/25 15:12 03/31/25 17:00 Ketorolac Tromethamine 30 Mg/Ml Inj IV 03/31/25 15:13 30 mg STAT ONE Administration Ketorolac Tromethamine Confirm 03/31/25 16:56 Ketorolac Tromethamine 30 Mg/Ml Inj Administered 03/31/25 16:57 Dose 30 mg .ROUTE .STK-MED ONE Ondansetron HCl 4 mg 03/31/25 15:12 03/31/25 17:00 Ondansetron Hcl 4 Mg/2 Ml Vial IV 03/31/25 15:13 4 mg STAT ONE Administration Ondansetron HCl Confirm 03/31/25 16:56 Ondansetron Hcl 4 Mg/2 Ml Vial Administered 03/31/25 16:57 Dose 4 mg .ROUTE .STK-MED ONE Lab/Rad Data: Laboratory Results 03/31/25 Range/Units 13:28 Lipase 54 (23-300) U/L - Progress Progress: improved, re-examined Progress Note: 03/31/25 17:35 Differential diagnosis includes but not limited to: Acute appendicitis, intestinal obstruction/perforation/kidney stone/pyelonephritis, choledocholithiasis, gastritis, AAA, ischemic colitis, infectious colitis, pancreatitis etc. 54-year-old female is evaluated in the ER for right-sided abdominal pain. She is given symptomatic treatment for pain, on reevaluation feeling better. She had a lab work drawn prior to arrival which is reviewed and has normal white count, unremarkable chemistries, obtain lipase which is negative. CT abdomen pelvis is negative for any acute intra-abdominal pelvic findings. I believe patient's symptoms are secondary to adhesions from previous cholecystectomy and hysterectomy. Recommended NSAIDs and outpatient follow-up. Also recommended taking stool softener/MiraLAX. Discussed signs symptoms of worsening needing return to ER which she seems understanding. Stable for discharge. Complexity of problems addressed: Moderate acute Complexity of data reviewed/analyzed: Moderate Risk of complication: Low risk. Counseled pt/family regarding: lab results, diagnosis, need for follow-up, rad results Medical Desision Making - Diagnostic Testing Diagnostic test were ordered, analyzed, and reviewed by me: Yes Radiological Interpretation: Reviewed by me - Risk of complications The pt has a mod risk of morbidity or mortality based on: Need for prescription drug management - Departure Departure Disposition: Home Clinical Impression: Right sided abdominal pain, Constipation Condition: Stable Critical Care Time: No Referrals: CARMEN CA DO [Primary Care Provider, [facility]] - Follow up with PCP 1 day Instructions: Severe Abdominal Pain, Adult (DC) Additional Instructions: Take Tylenol/diclofenac as needed. Do not take ibuprofen or Aleve while taking diclofenac. Drink plenty of fluids. Take daily MiraLAX and stool softener. Follow-up with primary care for reevaluation. Return to ER for intractable abdominal pain, nausea vomiting or if develop fever chills etc. Prescriptions: Diclofenac Sodium 50 mg PO TID PRN 7 Days #20 tab PRN Reason: Pain
[2025-03-31] MEDS ORDERED: TORAdol 30 mg Injection ONE (16:56)
[2025-03-31] MEDS ORDERED: Sodium Chloride 0.9% 1000 ML 1,000 ML ONE (16:56)
[2025-03-31] MEDS ORDERED: Zofran 4 MG/2 ML VIAL ONE (16:56)
--- NOTE | 2025-03-31 16:57 | XRAY ---
Indication: Right lower quadrant pain. Multiple contiguous axial images obtained through the abdomen and pelvis using 77 cc Isovue 370 contrast. Comparison: None Lung bases clear. Heart not enlarged. Noncontrasted stomach and bowel loops appear nonobstructed. Appendix not visualized. Mild diffuse scattered colonic fecal debris. Previous cholecystectomy and hysterectomy. No free fluid/air. Both kidneys enhance and excrete with 4.6 cm right lower cyst. Left kidney demonstrates 2 cortical cysts measuring 2 cm each. Remaining liver, pancreas, spleen, adrenal glands, kidneys, ureters, bladder, and aorta are unremarkable. No pathologic retroperitoneal lymphadenopathy. Osseous structures intact with lumbosacral junction degenerative disc disease. No ventral or inguinal hernias. Impression: Mild fecal stasis, bilateral renal cysts, and lumbosacral junction degenerative disc disease. Remaining CT abdomen/pelvis with contrast exam is negative.
[2025-03-31] MEDS: Sodium Chloride 0.9% 1000 ML 1,000 ML IV STA (16:58)
[2025-03-31] MEDS: Zofran 4 MG/2 ML VIAL IV ONE (17:00)
[2025-03-31] MEDS: TORAdol 30 mg Injection IV ONE (17:00)
[2025-03-31 17:40] VITALS: O2SAT 97
[2025-03-31 18:16] VITALS: BP 131/79; PULSE 68; RESP 18
== END 2025-03-31 18:18 | disposition home or self-care (01) ==
LOC: ED 14:32
DX: K59.00 Constipation, unspecified (principal); R10.31 Right lower quadrant pain; Z79.899 Other long term (current) drug therapy
CPT/HCPCS: 36415; 74177; 83690; 96361; 96374; 96375; 99284; 99285; J1885; J2405

== ENCOUNTER 2025-04-01 10:08 | Emergency (ER) | payer OTHER ==
[2025-04-01 10:26] VITALS: PULSE 64; TEMP 97.1; O2SAT 94
--- NOTE | 2025-04-01 10:39 | ERPHSYRPT ---
- History of Present Illness Source: patient Exam Limitations: no limitations Patient Subjective Stated Complaint: pt was here yesterday for a CT scan and was injected with contrast and the line infiltrated in her left hand and 19ml was injected prior to removal of IV, pt c/o of pain up the forearm today Triage Nursing Assessment: Pt brought self to the ER, vitals wnl, rates pain as 3/10, pulses normal, skin n/w/d, left hand mildly swollen, denies any other issues Physician History: Patient had a IV placed yesterday in her hand. It was for an IV contrast study. It infiltrated with about 15 cc yesterday. Today she has some edema in her h and. She does not have any vascular compromise. Pain is moderate. Nothing really makes it better or worse. She has been elevating it. She has not had any pressure wraps or anything like that on it. There is no other trauma. Extremities Pain Location: hand: left Modifying Factors: Improves With: nothing Associated Symptoms: none Allergies/Adverse Reactions: morphine Allergy (Severe, Verified 04/01/25 10:26) hydrocodone bitartrate [From Vicodin] Allergy (Verified 04/01/25 10:26) Home Medications: Metoprolol Tartrate 25 mg [Lopressor 25MG Tab] 25 mg PO DAILY 06/10/21 [History] Ezetimibe [Zetia] 10 mg PO DAILY 09/18/23 [History] PARoxetine HCL [Paroxetine HCl] 10 mg PO DAILY 09/07/24 [History] Hx Tetanus, Diphtheria Vaccination/Date Given: Yes Hx Influenza Vaccination/Date Given: No Hx Pneumococcal Vaccination/Date Given: No Travel Risk - International Travel Have you traveled outside of the country in past 3 weeks: No - Emerging Infectious Disease Are you exhibiting symptoms associated with any current EIDs: No Symptoms: Cough: New Onset - Review of Systems Constitutional: No Symptoms Eyes: No Symptoms Skin: No Symptoms Neurological: No Symptoms All Other Systems: Reviewed and Negative - Past Medical History Pertinent Past Medical History: Yes Neurological History: No Pertinent History ENT History: No Pertinent History Cardiac History: Other Respiratory History: No Pertinent History Endocrine Medical History: No Pertinent History Musculoskeletal History: Arthritis, Fibromyalgia GI Medical History: No Pertinent History History: No Pertinent History Psycho-Social History: Anxiety Female Reproductive Disorders: No Pertinent History Other Medical History: SEVERE ANXIETY, mitral valve prolaspe - Past Surgical History Past Surgical History: Yes Neuro Surgical History: No Pertinent History Cardiac: No Pertinent History Respiratory: No Pertinent History Gastrointestinal: Cholecystectomy Genitourinary: No Pertinent History Musculoskeletal: No Pertinent History, Orthopedic Surgery Female Surgical History: Hysterectomy, Tubal Ligation Other Surgical History: tonsils. R foot, big toe - Female History Hx Now: No - Social History Smoking Status: Never smoker Exposure to second hand smoke: Yes Drug Use: none - Social Determinants of Health Will the patient participate in the screening: Yes Do you worry about a steady place to live?: No Do you have any problems with any of the following?: No known problems In the past 12 months,have you had to go without utilities?: No Transportation Issues: No Has anyone in your support network made you feel unsafe?: No Have you or anyone in your house had to go w/o enough food: No - Nursing Vital Signs Nursing Vital Signs: Initial Vital Signs Temperature 97.1 F 04/01/25 10:21 Pulse Rate 64 04/01/25 10:21 Blood Pressure 125/73 04/01/25 10:21 O2 Sat by Pulse Oximetry 94 L 04/01/25 10:21 Pain Scale Pain Intensity 3 - Physical Exam General Appearance: no apparent distress Elbow/Forearm Exam: normal inspection Wrist Exam: normal inspection Hand Exam: swelling (There is edema in the hand. It is a little bit bruised as well. I think she had a extravasation of blood.) Neuro/Tendon Exam: normal sensation, normal motor functions, normal tendon functions, responds to pain, no evidence tendon injury, No motor deficit Mental Status Exam: alert, oriented x 3 Skin Exam: normal color, warm, dry SpO2: 94 - Course Nursing assessment & vital signs reviewed: Yes - Progress Progress: improved Progress Note: Patient was stable throughout stay. I applied an Yohan wrap initially and I put her on pretty tight. Some of the edema did go away however it was too tight. She is having some discoloration in her fingertips. I loosened it and reapplied it. This was more satisfactory. Going to have her ice and elevate and use pressure wrap until the symptoms resolve. 04/01/25 10:37 - Departure Departure Disposition: Home Clinical Impression: Hand edema Condition: Stable Critical Care Time: No Referrals: CA,CARMEN, DO [Primary Care Provider, [facility]] - Follow up/PCP as directed Additional Instructions: Ice and elevate is much as possible. Wear wrap as much as possible. Adjusted for tightness or more looseness if needed. Return if symptoms worsen
[2025-04-01 10:51] VITALS: BP 117/67
== END 2025-04-01 10:53 | disposition home or self-care (01) ==
LOC: ED 10:08
DX: R60.0 Localized edema (principal); Z79.899 Other long term (current) drug therapy
CPT/HCPCS: 99281